=== PATIENT | male | born 1930 | race Caucasian/White ===

== ENCOUNTER 2016-08-03 10:44 | Emergency (ER) | payer MEDICARE ==
[2016-08-03] MEDS ORDERED: FLUORESCEIN STRIP 1 MG/STRIP STRIP ONE (11:16)
--- NOTE | 2016-08-03 11:32 | ER NURSING DOCUMENTATION ---
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 NO VISUAL CHANGE. Transition of care: Home. Notified ED Physician of patient's arrival and CC. 10:53 Acuity: LUBA 3 lc 10:53 Method Of Arrival: Private Vehicle Triage Assessment: 10:55 General: Appears distressed, well groomed, Behavior is appropriate for age, lc cooperative. Pain: Complains of pain in right eye Pain At worst was 2 out of 10 on a pain scale. Quality of pain is described as aching, dull. Neuro: Level of Consciousness is awake, alert, Oriented to person, place, time, event. Respiratory: Airway is patent Respiratory effort is even, unlabored, Respiratory pattern is regular, symmetrical. Derm: Rash noted that is raised, vesicular, on right eye. Historical: - Allergies: No known drug Allergies; - Home Meds: 1. BP MED 2. CANT REMEMBER THE LIST - PMHx: Hypertension; - PSHx: Appendectomy; - Tetanus: < 10 years. - Ebola Screening: : Patient negative for fever greater than or equal to 101.5 degrees Fahrenheit, and additional compatible Ebola Virus Disease symptoms. Patient denies exposure to infectious person. Patient denies travel to an Ebola-affected area in the 21 days before illness onset. No symptoms or risks identified at this time. . - Immunization history: Flu Vaccine < 1 year NO SHINGLES SHOT. - Social history: Smoking status: Patient states was never smoker of tobacco. Screenin:57 Infectious Disease Risk None. Abuse screen: Denies threats or abuse. Denies injuries lc from another. Nutritional screening: No deficits noted. Assessment: 10:57 See Triage Assessment done by same RN. Vital Signs: 10:52 BP 166 / 71 LA Sitting (auto/reg); Pulse 78 LA; Resp 20 S; Temp 97.5(O); Pulse Ox 90% em3 on R/A; Weight 70.31 kg (R); Height 5 ft. 10 in. (177.80 cm) (R); Pain 1/10; 11:18 Resp 16; Pain 1/10; lc 10:52 Body Mass Index 22.24 (70.31 kg, 177.80 cm) em3 Visual Acuity: 11:06 Left Eye Visual acuity 20/40, ; Right Eye Visual acuity 20/40, ; Both Eyes Visual lc acuity 20/40; With Lenses; [place] Coma Score: 11:29 Eye Response: spontaneous(4). Verbal Response: oriented(5). Motor Response: obeys cd commands(6). Total: 15. ED Course: 10:46 Patient arrived in ED. em3 10:47 Triage completed. tg 10:47 Whitney Dietz, JALEESA is Primary Nurse. lc 10:48 Lucas Perry MD is Attending Physician. cd 10:53 Laura Sena MD is Private Physician. em3 10:53 Valuables Remains with patient Patient has correct armband on for positive em3 identification. Bed in low position. Call light in reach. Side rails up X 1. 11:06 Drake Vegas MD is Referral Physician. cd 11:11 Assist Provider Assist provider with eye exam of right eye. using fluorescein stain, lc Performed by Lucas Perry MD Patient tolerated well. Administered Medications: No medications were administered Outcome: 11:08 Discharge ordered by MD. cd 11:18 Discharged to home ambulatory. 11:18 Condition: stable 11:18 Discharge Assessment: Patient awake, alert and oriented x 3. No cognitive and/or functional deficits noted. Patient verbalized understanding of disposition instructions. 11:18 Discharge instructions given to patient, Instructed on discharge instructions, follow up and referral plans. medication usage, HANDWASHING Demonstrated understanding of instructions, medications, Prescriptions given X 2, FAXED TO PHARMACY 11:32 Patient left the ED. 08/04 09:41 Discharge F/U Call: Unable to reach: no answer lp Signatures: Anders Haas RN RN tg Coleman, Linda, RN RN lc Pavlish, Lena, RN RN lp Daley, Chris, MD MD cd Keagan Marie em3
--- NOTE | 2016-08-03 11:32 | ER PHYSICIAN DOCUMENTATION ---
Physician Documentation [facility] Name:Conner Cruz Age:86 yrs Sex:Male :1930 Arrival Date:08/03/2016 Time:10:44 Bed2 Private MD:Laura Sena ED, Chris Disposition: 08/03/16 11:08 Discharged to Home/Self Care. Impression: Herpes Zoster - of First Branch of Right Trigeminal Nerve. - Condition is Fair. - Discharge Instructions: HERPES ZOSTER. - Prescriptions for Famvir 500 mg Oral Tablet - take 1 tablet by ORAL route every 8 hours for 7 days; 21 tablet. - Medical Reconciliation form form. - Follow up: Drake Vegas MD; When: Tomorrow; Reason: Recheck today's complaints, Continuance of care. - Problem is new. - Symptoms are unchanged. - Notes: Take Prednisone 30mg by mouth twice a day for 7 days..... then take Prednisone 15mg by mouth twice a day for 7 days... then take Prednisone 7.5mg by mouth twice a day for 7 days... then stop. Take Famvir 500mg by mouth every 8 hours for 7 days. Take Benadryl 25mg by mouth every 6 hours for itching... Take Tylenol 500mg by mouth every 6 hours for pain... Wash your hands frequently.... Call Dr. Drake Vegas's (Eye Surgeon) office tomorrow morning at 8:00 AM for a follow-up appointment in the clinic downstairs tomorrow. HPI: 08/03 10:50 This 86 yrs old Male presents to ER via Private Vehicle with complaints of cd Eye Problem - Right. 10:50 The patient is experiencing redness, vesicular rash over is right forehead and eyelids. cd He denies blurry vision, painful blinking or eye pain. He denies fever or chills.. Onset: The symptom(s)/episode began/occurred acutely, 10 day(s) ago. Duration: the symptoms are continuous. Associated signs and symptoms: Pertinent negatives: chills, dizziness, fever, headache. Patient wears glasses. Severity of symptoms: At their worst the symptoms were moderate in the emergency department the symptoms are unchanged. The patient has not experienced similar symptoms in the past. Historical: - Allergies: No known drug Allergies; - Home Meds: 1. BP MED 2. CANT REMEMBER THE LIST - PMHx: Hypertension; - PSHx: Appendectomy; - Tetanus: < 10 years. - Ebola Screening: : Patient negative for fever greater than or equal to 101.5 degrees Fahrenheit, and additional compatible Ebola Virus Disease symptoms. Patient denies exposure to infectious person. Patient denies travel to an Ebola-affected area in the 21 days before illness onset. No symptoms or risks identified at this time. . - Immunization history: Flu Vaccine < 1 year NO SHINGLES SHOT. - Social history: Smoking status: Patient states was never smoker of tobacco. ROS: 11:27 Neck: Negative for injury, pain, stiffness and swelling. cd Cardiovascular: Negative for chest pain, palpitations, edema and pleuritic pain. Respiratory: Negative for shortness of breath, dyspnea on exertion, cough, sputum production, wheezing, hemoptysis and pleuritic chest pain. Abdomen/GI: Negative for abdominal pain, nausea, vomiting, diarrhea, constipation, distension, melena, hematochezia and hematemesis. Back: Negative for injury, pain or muscle spasms. MS/Extremity: Negative for injury, deformity, edema, calf tenderness, pain or coldness. 11:27 Neuro: Negative for headache, weakness, numbness, tingling, and seizure. cd 11:27 Constitutional: Negative for chills, fever, poor PO intake. 11:27 Eyes: Positive for itching, Negative for blurry vision, foreign body sensation, pain, photophobia, tearing, visual disturbance, vision loss. 11:27 ENT: Negative for ear pain, nasal discharge, rhinorrhea, sinus congestion, sinus pain, sore throat. 11:27 Skin: Positive for rash, of the right forehead and right eye, Negative for cellulitis, erythema, Positive for classic right First Branch of the Trigeminal Nerve Herpes Zoster.. 11:27 All other systems are negative. Exam: 11:29 Visual Acuity: I have reviewed the nursing documentation. Visual acuity is within cd normal limits. for patient. ENT: Nares patent. No nasal discharge, no septal abnormalities noted. Tympanic membranes are normal and external auditory canals are clear. Oropharynx with no redness, swelling, or masses, exudates, or evidence of obstruction, uvula midline. Mucous membranes moist. Neck: Trachea midline, no thyromegaly or masses palpated, and no cervical lymphadenopathy. Supple, full range of motion without nuchal rigidity, or vertebral point tenderness. No Meningismus. Cardiovascular: Regular rate and rhythm with a normal S1 and S2. No gallops, murmurs, or rubs. Normal PMI, no JVD. No pulse deficits. Respiratory: Lungs have equal breath sounds bilaterally, clear to auscultation and percussion. No rales, rhonchi or wheezes noted. No increased work of breathing, no retractions or nasal flaring. Abdomen/GI: Soft, non-tender, with normal bowel sounds. No distension or tympany. No guarding or rebound. No evidence of tenderness throughout. Back: No spinal tenderness. No costovertebral tenderness. Full range of motion. 11:29 MS/ Extremity: Pulses equal, no cyanosis. Neurovascular intact. Full, normal range of motion. 11:29 Constitutional: The patient appears alert, awake, non-diaphoretic, non-toxic, well developed, well nourished. 11:29 Head/face: Noted is rash, of the right forehead and right eye. 11:29 Eyes: Periorbital structures: swelling, that is mild, on the right lower eyelid, Pupils: equal, round, and reactive to light and accomodation, Extraocular movements: intact throughout, Conjunctiva: injected, in the right eye, Corneas: a fluorescein strip employed to appreciate the findings, No keratitis changes seen, Lids and lashes: drainage, from the right eye, edema, of the right eye, mild, Visual bergeron: are intact. 11:29 Skin: Appearance: normal except for affected area, zoster, on the right forehead and right eye. 11:29 Neuro: Orientation: is normal, Mentation: is normal, Memory: is normal, Cranial nerves: CN II- XII are normal as tested, Motor: moves all fours, Sensation: is normal. Vital Signs: 10:52 BP 166 / 71 LA Sitting (auto/reg); Pulse 78 LA; Resp 20 S; Temp 97.5(O); Pulse Ox 90% em3 on R/A; Weight 70.31 kg (R); Height 5 ft. 10 in. (177.80 cm) (R); Pain 1/10; 11:18 Resp 16; Pain 10; lc 10:52 Body Mass Index 22.24 (70.31 kg, 177.80 cm) em3 [place] Coma Score: 11:29 Eye Response: spontaneous(4). Verbal Response: oriented(5). Motor Response: obeys cd commands(6). Total: 15. Visual Acuity: 11:06 Left Eye Visual acuity 20/40, ; Right Eye Visual acuity 20/40, ; Both Eyes Visual lc acuity 20/40; With Lenses; MDM: 10:48 Patient medically screened. cd 11:25 Differential diagnosis: Corneal ulcer of right eye. Acute iritis of right eye. cd Infectious conjunctivitis in right eye. Herpes Keratitis, Right First Branch Trigeminal Nerve Herpes Zoster. Data reviewed: vital signs, nurses notes, old medical records, and as a result, I will discharge patient. Data interpreted: Pulse oximetry: on room air is 90 %. Interpretation: normal. Counseling: I had a detailed discussion with the patient and/or guardian regarding: the historical points, exam findings, and any diagnostic results supporting the discharge/admit diagnosis, the need for outpatient follow up, for a recheck, for a referral to a specialist, an opthalmologist, tomorrow. 11:43 ED course: Although the patient has Zoster lesions about and on his right eyelids, I cd see no involvement of his corneas. Even though he is beyond his initial 3 days of rash, I will place him on Famvir 500 mg PO q 8 hours for 7 days and Prednisone 21 day taper because of his age. He was instructed to use Benadryl for itching, Tylenol for pain (which he currently has none) and close follow up with Dr. Drake Vegas tomorrow for a thorough Eye Exam.. Dispensed Medications: No medications were administered Signatures: Whitney Dietz, JALEESA RN Lucas Lofton MD MD cd
== END 2016-08-03 11:32 | disposition home or self-care (01) ==
LOC: ER 10:44
DX: B02.9 Zoster without complications (principal); I10 Essential (primary) hypertension; Z79.899 Other long term (current) drug therapy
CPT/HCPCS: 99282; 99283

== ENCOUNTER 2016-08-04 10:07 | Inpatient (IN) | payer MEDICARE ==
[2016-08-04] MEDS ORDERED: HOME MEDICATION LIST NEEDED 1 EA EACH MC ONE (11:22)
[2016-08-04 11:31] LABS: BASOPHILS 0.3 % (0.0-2.0); HEMATOCRIT 48.9 % (42.0-54.0); HEMOGLOBIN 16.8 g/dL (14.0-18.0); LYMPHOCYTES 11.4 % (20.0-40.0); MEAN CELL VOLUME 97.9 fL (80.0-100.0); MEAN CORPUS. HGB CONCENTRATION 34.3 g/dL (32.0-36.0); MEAN CORPUSCULAR HEMOGLOBIN 33.6 pg (29.0-35.0); MEAN PLATELET VOLUME 7.7 fL (7.4-10.4); MONOCYTES 9.2 % (2.0-10.0); MONOCYTES# 0.8 X 10^3uL (0.2-1.0); NEUTROPHILS 79.1 % (54.0-75.0); PLATELET COUNT 201 X 10^3uL (130-440); RED BLOOD COUNT 4.99 X 10^6uL (4.20-6.10); RED CELL DISTRIBUTION WIDTH 12.6 % (11.5-14.5); WHITE BLOOD COUNT 8.8 X 10^3uL (3.9-10.7)
[2016-08-04 11:41] LABS: BLOOD UREA NITROGEN 33 mg/dL (9-20); CALCIUM 9.6 mg/dL (8.4-10.2); CHLORIDE 107 mmol/L (98-107); GLUCOSE 131 mg/dL (70-100); POTASSIUM 3.9 mmol/L (3.5-5.1); SODIUM 140 mmol/L (137-145)
[2016-08-04] MEDS ORDERED: NORMAL SALINE IV ONE (12:00)
[2016-08-04] MEDS ORDERED: ACYCLOVIR IV ONE (12:00)
--- NOTE | 2016-08-04 12:39 | CT REPORT ---
HISTORY: Altered mental status. COMPARISON: None. TECHNIQUE: Axial non-contrast images obtained from skull vertex through foramen magnum. Dose reduction technique was utilized. FINDINGS: There is age appropriate atrophy. There is decreased attenuation in the periventricular white matter , consistent with chronic small vessel ischemic change. There is no hemorrhage. There is no hydroce phalus. No mass lesion is identified. There is a subcentimeter focus of chronic type infarction not ed in the right head of the caudate nucleus. Haas-white matter differentiation is adequate. No midli ne shift is identified. The paranasal sinuses are clear. IMPRESSION: Chronic small vessel ischemic changes. 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 No acute abnormality identified. If highly concerned for acute infarction, MRI is advised. Final Electronic Signature: This report was electronically signed by Jacob Kramer MD, FACR on 2016 12:37 PM. jeanette /
--- NOTE | 2016-08-04 13:26 | ER PHYSICIAN DOCUMENTATION ---
Physician Documentation [facility] Name:Conner Cruz Age:86 yrs Sex:Male :1930 Arrival Date:08/04/2016 Time:10:07 Bed3 Private MD: Hari Yi Disposition: 08/04/16 11:22 Admit ordered for Laura Sena. Preliminary diagnosis are Altered Mental Status, Herpes Zoster Of Eyelid. - Bed requested for Medical/Surgical. - Condition is Fair. - Problem is new. - Symptoms are unchanged. 23 HR OBS Yes HPI: 08/04 11:03 This 86 yrs old Male presents to ER via Private Vehicle with complaints of jm Altered Mental Status. 11:03 The patient presents with confusion. Onset: The symptom(s)/episode began/occurred jm today. Possible causes: unknown. Associated signs and symptoms: Pertinent positives: confusion, Pertinent negatives: headache. Current symptoms: In the emergency department the patient's symptoms are unchanged from the initial presentation. The patient has not experienced similar symptoms in the past. The patient has been recently seen at the [facility] Emergency Department, yesterday, for unrelated complaints, Pt dx w shingles affecting his R eye/forehead. . Pt showed up at clinic today confused about his scripts he received for his shingles. Pt thinks that yesterday he was at a medical convention where he went from room to room, but never saw a doctor about his shingles. . Historical: - Allergies: SULFA (SULFONAMIDES); - Home Meds: 1. Allopurinol Oral 2. amlodipine oral 3. Simethicone Oral 4. vitamin B 5. cortizone-10 6. Clobetasol Propionate Topical 7. betamethasone 8. Triamcinolone Acetonide Topical 9. vitamin D 10. aspirin 81 mg oral tab - PMHx: HYPERTENSION; Herpes Zoster - of First Branch of Right Trigeminal Nerve (August 03, 2016); - PSHx: APPENDECTOMY; - Tetanus: < 10 years. - Ebola Screening: : Patient negative for fever greater than or equal to 101.5 degrees Fahrenheit, and additional compatible Ebola Virus Disease symptoms. - Immunization history: Flu Vaccine None. - Social history: Smoking status: Patient states was never smoker of tobacco. ROS: 11:11 Constitutional: Negative for fever. jm 11:11 Eyes: Positive for blurry vision, itching, pain. 11:11 ENT: Negative for rhinorrhea, sinus congestion, sinus pain, sore throat. 11:11 Cardiovascular: Negative for chest pain. 11:11 Respiratory: Negative for cough, shortness of breath. 11:11 Neuro: Positive for altered mental status, Negative for dizziness, headache. 11:11 All other systems are negative. Exam: 11:12 Constitutional: The patient appears alert, awake. 11:12 Eyes: Periorbital structures: cellulitis, erythema, swelling, Pupils: equal, round, and reactive to light and accomodation, Extraocular movements: intact throughout, Conjunctiva: injected. 11:12 ENT: Mouth: is normal, Voice: is normal. 11:12 Chest/axilla: Inspection: normal, Palpation: is normal. 11:12 Cardiovascular: Rhythm: regular, Pulses: no pulse deficits are appreciated. 11:12 Abdomen/GI: Bowel sounds: normal, Palpation: abdomen is soft and non-tender. 11:12 Back: CVA tenderness, is absent, vertebral tenderness, is not appreciated. 11:12 Musculoskeletal/extremity: ROM: no acute changes, Pulses: are normal with no appreciated deficits, Weight bearing: able to fully bear weight. 11:12 Skin: cellulitis, possible over the L eye/forehead . 11:12 Neuro: Orientation: to person, place, time & situation. Mentation: confused. 11:12 Psych: Behavior/mood is pleasant, cooperative. Vital Signs: 10:12 BP 155 / 64 RA Sitting; Pulse 72; Resp 18; Temp 98.0(O); Pulse Ox 90% on R/A; Weight la 70.31 kg (R); Height 5 ft. 10 in. (177.80 cm) (R); Pain 4/10; 11:32 BP 148 / 59 LA Sitting; Pulse 68; Resp 18; Pulse Ox 90% on R/A; Pain 4/10; la 10:12 Body Mass Index 22.24 (70.31 kg, 177.80 cm) la MDM: 10:11 Patient medically screened. 11:20 Differential Diagnosis: intracranial bleed, dementia, HSV. Data reviewed: vital signs, nurses notes, old medical records, lab test result(s), radiologic studies, and as a result, I will admit patient. Counseling: I had a detailed discussion with the patient and/or guardian regarding: the historical points, exam findings, and any diagnostic results supporting the discharge/admit diagnosis, lab results, radiology results, the need for further work-up and treatment in the hospital. Physician consultation: Laura Sena MD regarding admission, and will see patient shortly, later today. Admission orders: after a detailed discussion of the patient's condition and case, the admit orders are written by me. ED course: CToH negative for acute pathology. Pt will need admission for placement as he is forgetful and confused about certain things regarding his care. Pt will get Ophtho consult while on the floor. . 08/04 11:32 Order name: CBC AUTO DIF, MDIF/RMOR IF IND; Complete Time: 11:49 [facility] 08/04 11:44 Order name: BASIC METABOLIC PANEL; Complete Time: 11:49 [facility] 08/04 15:18 Order name: HEPATIC PANEL [facility] 08/05 02:48 Order name: UA W/ MICRO -CULTURE IF IND [facility] 08/05 06:16 Order name: CBC AUTO DIF, MDIF/RMOR IF IND EDMN 08/05 06:21 Order name: BASIC METABOLIC PANEL [facility] 08/05 11:37 Order name: ERYTHROCYTE SEDIMENTATION RATE EDMN 08/05 11:38 Order name: C-REACTIVE PROTEIN [facility] 08/05 11:52 Order name: THYROID STIMULATING HORMONE EDMN 08/05 12:42 Order name: FREE T4 [facility] 08/05 14:06 Order name: VITAMIN B12 [facility] 08/05 14:06 Order name: FOLATES [facility] 08/06 07:14 Order name: BLOOD CULTURE [facility] 08/06 07:14 Order name: BLOOD CULTURE [facility] 08/06 09:24 Order name: URINE CULTURE [facility] 08/06 09:44 Order name: CBC AUTO DIF, MDIF/RMOR IF IND EDMN 08/06 09:47 Order name: BASIC METABOLIC PANEL [facility] 08/06 09:47 Order name: BNP,NT-PRO EDMN 08/04 12:40 Order name: CAT SCAN; HEAD W/O CON [id number] EDMN 08/05 10:26 Order name: BRAIN W/WO CONTRAST [id number] [facility] 08/04 10:37 Order name: Iv Saline Lock; Complete Time: 11:11 08/04 10:37 Order name: Pulse Ox Continuous; Complete Time: 11:11 Dispensed Medications: 11:34 Drug: NS 0.9% 1000 ml; Route: IV; Rate: bolus; Site: left antecubital; la 12:13 Follow up: IV Status: Completed infusion; IV Intake: 1000ml la 12:14 Follow up: Response: No adverse reaction la 11:35 Drug: NS 0.9% 100 ml, Acyclovir 10 mg/kg; Route: IVPB; Site: left antecubital; la 12:14 Follow up: Response: No adverse reaction la 12:33 Follow up: IV Status: Completed infusion; IV Intake: 100ml la Signatures: Hari Alejandra MD MD jm Alexander, Linda la
--- NOTE | 2016-08-04 13:26 | ER NURSING DOCUMENTATION ---
Nurse's Notes [facility] Name:Conner Cruz Age:86 yrs Sex:Male :1930 Arrival Date:08/04/2016 Time:10:07 Bed3 Private MD: Diagnosis:Altered Mental Status;Herpes Zoster Of Eyelid Presentation: 08/04 10:13 Presenting complaint: Patient states: right forehead with various stages of scabbing la for "awhile", redness around right eye with swelling. yesterday he said he poked his finger into his right eye. right eye tearing. Transition of care: Home. 10:13 Acuity: LUBA 3 la 10:13 Method Of Arrival: Private Vehicle la Triage Assessment: 10:17 General: Appears comfortable, Behavior is cooperative, pleasant. Pain: Complains of la pain in right eye Pain currently is 4 out of 10 on a pain scale. EENT: Eyes are tearing on right eye redness. Neuro: Level of Consciousness is awake, alert, obeys commands, Oriented to person, place, time, states he was at an event yesterday and told he may have shingles. Clinic triage nurse called to say Dr Vegas does not need to see him until after he has been treated. . 10:17 Cardiovascular: No deficits noted. Respiratory: No deficits noted. GI: No deficits la noted. : No deficits noted. Derm: Skin has blisters on scabbed. 10:17 Musculoskeletal: No deficits noted. la Historical: - Allergies: SULFA (SULFONAMIDES); - Home Meds: 1. Allopurinol Oral 2. amlodipine oral 3. Simethicone Oral 4. vitamin B 5. cortizone-10 6. Clobetasol Propionate Topical 7. betamethasone 8. Triamcinolone Acetonide Topical 9. vitamin D 10. aspirin 81 mg oral tab - PMHx: HYPERTENSION; Herpes Zoster - of First Branch of Right Trigeminal Nerve (August 03, 2016); - PSHx: APPENDECTOMY; - Tetanus: < 10 years. - Ebola Screening: : Patient negative for fever greater than or equal to 101.5 degrees Fahrenheit, and additional compatible Ebola Virus Disease symptoms. - Immunization history: Flu Vaccine None. - Social history: Smoking status: Patient states was never smoker of tobacco. Screenin:20 Infectious Disease Risk None. Abuse screen: Denies threats or abuse. Nutritional la screening: No deficits noted. Assessment: 10:20 See Triage Assessment done by same RN. la 11:12 Reassessment: To CT. la 11:35 Neuro: appears confused as to events of being here. Standing at bedside putting shirt la on, pt re-oriented to being in the hospital. Pt pleasant and follows commands to lie back in bed. Door remains open to observe pt. . 11:36 Reassessment: acyclovir prepared by pharmacy. la 12:14 Reassessment: Dr Medina in with pt updating on plan of care. . la 12:37 Reassessment: Patient appears in no apparent distress at this time. pt sleeping. la 12:56 Reassessment: pts POA on phone Hari Montejo [phone]. Pt gave permission for me to la talk to Hari and give him an update. Vital Signs: 10:12 BP 155 / 64 RA Sitting; Pulse 72; Resp 18; Temp 98.0(O); Pulse Ox 90% on R/A; Weight la 70.31 kg (R); Height 5 ft. 10 in. (177.80 cm) (R); Pain 4/10; 11:32 BP 148 / 59 LA Sitting; Pulse 68; Resp 18; Pulse Ox 90% on R/A; Pain 4/10; la 10:12 Body Mass Index 22.24 (70.31 kg, 177.80 cm) la ED Course: 10:10 Patient arrived in ED. cj 10:11 Hari Aeljandra MD is Attending Physician. yaya 10:13 Whitney Jones is Primary Nurse. la 10:15 Triage completed. la 10:21 Valuables Remains with patient Patient has correct armband on for positive la identification. Bed in low position. Call light in reach. Side rails up X 1. Door closed. Verbal reassurance given. Pillow given. 11:[address] dnn 11:[address]. dnn 11:21 Laura Sena MD is Admitting Physician. yaya Administered Medications: 11:34 Drug: NS 0.9% 1000 ml; Route: IV; Rate: bolus; Site: left antecubital; la 12:13 Follow up: IV Status: Completed infusion; IV Intake: 1000ml la 12:14 Follow up: Response: No adverse reaction la 11:35 Drug: NS 0.9% 100 ml, Acyclovir 10 mg/kg; Route: IVPB; Site: left antecubital; la 12:14 Follow up: Response: No adverse reaction la 12:33 Follow up: IV Status: Completed infusion; IV Intake: 100ml la Intake: 12:13 IV: 1000ml; Total: 1000ml. la 12:33 IV: 100ml; Total: 1100ml. la Outcome: 11:22 Decision to Admit by Provider. yaya 13:25 Admitted to Med/surg accompanied by nurse. juno 13:25 Condition: good 13:25 Report given to iVdhi LAZCANO 13:25 Discharge Assessment: 13:26 Patient left the ED. la Signatures: Hari Alejandra MD MD jm Norman, David dnn Alexander, Linda la Jones, Carissa cj
[2016-08-04 15:17] LABS: BILIRUBIN, DIRECT 0.3 mg/dL (0.0-0.4); TOTAL PROTEIN 6.6 g/dL (6.3-8.2)
[2016-08-04] MEDS: NORMAL SALINE 1,000 ML IV SCH (16:13)
[2016-08-04] MEDS: ACETAMINOPHEN 325 MG TABLET PO PRN (16:14)
[2016-08-04] MEDS: METHYLPREDNISOLONE SOD 125 MG/2 ML VIAL IV SCH ×2 (16:48→21:37)
--- NOTE | 2016-08-04 17:23 | HISTORY & PHYSICAL ---
DATE OF ADMISSION: 08/04/16 PRIMARY CARE PROVIDER: Laura Sena MD CHIEF COMPLAINT: Right eye pain. HISTORY OF PRESENT ILLNESS: This is an 86-year-old white male with a history of chronic renal failure who was seen in the emergency room yesterday for zoster ophthalmicus. He was discharged home with prescriptions for an antiviral and prednisone. However, he did not fill these medications. Of note , he is a very poor historian. He states that he has not had any fevers, chills or sweats. He has had right eye pain. He is unclear about the onset of his symptoms. He says he feels like he has had these symptoms on and off for a long time. He denies nausea or vomiting. He has chronic diarrhea alternating with constipation. He states he has chronic neck pain without any acute worsening of his symptoms. No myalgias and no arthralgias. No cough or sore throat. No shortness of breath. No chest pain. No palpitations. He states that he has decreased visual acuity and difficulty focusing his right eye. He is confused and states that he went to a medical conference yesterday and spoke with a female provider who thought he had shingles and recommended that he be seen. He then came to the clinic this morning and spoke with triage. He was then sent to the emergency room given his altered mental status. REVIEW OF SYSTEMS: No abdominal pain. His appetite has been fairly stable. He has a history of chronic bilateral lower extremity dermatitis for which he has used topical steroids. He is not having any symptoms of his opposite left eye. He has had some right eye purulent drainage. He has had some low grade headaches. No PND. He uses 2 pillows but this is no change from his baseline. No edema. No dysuria. No bloody stools other than secondary to his hemorrhoids. He has not had any falls at home but he states that he is losing his balance and he has some ataxia with near falls. He was supposed to go into see [facility] Dr. Drake Vegas today for his zoster, but he was unaware of these recommendations. He has no photophobia, but he has pain with eye movement. PAST MEDICAL HISTORY 1. Hypertension. 2. Fecal incontinence. 3. Large right inguinal hernia. 4. 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 5. Chronic dry skin dermatitis. 6. Osteopenia. 7. Chronic kidney disease stage 3 with baseline creatinine 1.8 to 1.9. He has a history of prior acute renal failure with creatinine elevation to 4.6. He has been seen by nephrology in the past. 8. Gout. 9. Chronic venous insufficiency of bilateral lower extremities. 10. History of a breast mass and has been evaluated by general surgery; no excision was recommended as it was thought to be benign. 11. Chronic urinary retention. He does self catheterizations 3 times daily. He is followed by urology Dr. Velazco. 12. History of multiple skin tears and lacerations. 13. Ataxia. 14. History of nephrolithiasis. PAST SURGICAL HISTORY 1. Status post transurethral resection of the prostate in 1991. 2. Arthroscopy of knee for a triad injury. 3. Appendectomy. 4. Left inguinal hernia repair. 5. Lithotripsy. 6. Nephrolithotomy and removal of multiple calculi. 7. Tonsillectomy. 8. Adenoidectomy. MEDICATIONS Allopurinol 100 mg twice daily. Amlodipine 10 mg daily. Vitamin 2000 daily. Baby aspirin 81 mg daily. Triamcinolone cream daily as needed. Baby aspirin. Over the counter cortisone 1% cream as needed to bilateral lower extremities. Vitamin B complex. Simethicone 80 mg daily. ALLERGIES: Sulfa causing an unknown reaction. SOCIAL HISTORY: He is a full cor. Advanced directives are in the chart. Rare alcohol use. He has never been a smoker. He is retired. He worked for the [employer]. 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 He is single. He has a nephew who is his medical [id number]. FAMILY HISTORY: Sister at the age of 55 from a pulmonary embolism after surgery. Dad at the age of 64 with a history of stroke and hypertension. Mom at age 86 of a carcinoid tumor and osteoarthritis. PHYSICAL EXAMINATION VITAL SIGNS: Temperature is 98.0, respiratory rate 18, pulse 72, blood pressure 155/64, 90% on room air. GENERAL: This is an elderly male who is in no apparent distress. He is sitting up in bad. Chronically ill appearing. HEENT: His pupils are equal, round, reactive to light. His extraocular movements are intact. However, he has significant pain with movement of his right eye. Yellow purulent drainage right eye with scleral and conjunctival injection. Right eye droop. Varicella zoster vesicular rash of the right side of his face in trigeminal distribution with some scabbing and clusters of vesicles in various stages of healing. Nose is spared. TMs are clear. Nares are boggy. Oropharynx is clear. Mucous membranes appear dry. NECK: Supple. No carotid bruits. No meningismus. No lymphadenopathy. Right paracervical spinous tenderness. LUNGS: Good aeration throughout and clear. HEART: Distant. Regular rate and rhythm without any murmurs, rubs or gallops. ABDOMEN: Soft, nontender, nondistended with good bowel sounds and no masses or hepatosplenomegaly. EXTREMITIES: Warm. Chronic venostasis changes bilaterally with pigmentation. Trace pedal and pretibial edema at his baseline. Good peripheral pulses. NEUROLOGIC: He is alert and oriented times 3. However, he does believe that he went to a medical conference yesterday and is confused about the details of what happened. Cranial nerves 2 through 12 are grossly intact without focal deficits. Motor sensation and DTRs are intact. DATA: CBC is remarkable for a white count of 8.8 with 79% neutrophils. Chemistries show bicarbonate of 21, BUN of 33, creatinine 1.7 which is at his baseline. Fasting glucose is 131. CT head negative. IMPRESSION: This is an 86-year-old male who presents with severe zoster ophthalmicus and altered mental status. PLAN 1. Fluids, electrolytes and nutrition. Regular diet. Gentle IV fluids. Recheck laboratory studies in the morning. 2. Infectious disease. IV Acyclovir was started. Follow CBC. Will request ophthalmology consultation. Blood and urine cultures. Consider lumbar puncture. 3. CV. The patient with underlying hypertension. Will continue amlodipine. 4. Respiratory. The patient is stable on room air. 5. Neurology: He has some short-term memory issues at baseline. However, he now has some significant delirium. CT head negative. Follow closely. 5. Disposition. The patient is full cor/full tube. Anticipate 2-3 day hospital stay. Will change from observation to full admission. Anticipate that he will need placement at the [facility] halfway. His neighbor states that he has been quite confused per ED staff. Will discuss with his nephew who is the medical [id number]. YARY
[2016-08-04] MEDS: ALLOPURINOL 100 MG TAB PO SCH (21:35)
[2016-08-04] MEDS: ERYTHROMYCIN BASE OPHTH 1 GM OINT RIGHTEYE SCH (21:35)
[2016-08-05] MEDS: NORMAL SALINE 1,000 ML IV SCH ×2 (00:38→23:19)
[2016-08-05 02:46] LABS: URINE APPEARANCE CLOUDY; URINE COLOR YELLOW; URINE MUCUS NONE SEEN (Up to 25%)
[2016-08-05 02:47] LABS: URINE BACTERIA >50 ORGANISMS/hpf (<10/hpf); URINE BILIRUBIN NEGATIVE (NEGATIVE); URINE BLOOD 50 Ery/uL (2+) (NEGATIVE); URINE GLUCOSE NORMAL (NEGATIVE); URINE KETONE NEGATIVE (NEGATIVE); URINE LEUKOCYTE ESTERASE 25 WBC/uL (1+) (NEGATIVE); URINE PH 5.5 (5-7); URINE PROTEIN 30mg/dL (1+) (NEG - TRACE); URINE SQUAMOUS EPITHELIAL CELL 0-5/hpf (<= 15/hpf); URINE UROBILINOGEN NORMAL (NEG-1mg/dL)
[2016-08-05 02:48] LABS: URINE NITRITE POSITIVE (NEGATIVE)
[2016-08-05] MEDS: METHYLPREDNISOLONE SOD 125 MG/2 ML VIAL IV SCH ×4 (04:11→21:00)
[2016-08-05 06:03] LABS: BASOPHILS 0.4 % (0.0-2.0); HEMATOCRIT 48.1 % (42.0-54.0); HEMOGLOBIN 16.5 g/dL (14.0-18.0); LYMPHOCYTES 4.9 % (20.0-40.0); LYMPHOCYTES# 0.5 X 10^3uL (0.8-3.8); MEAN CELL VOLUME 99.2 fL (80.0-100.0); MEAN CORPUS. HGB CONCENTRATION 34.4 g/dL (32.0-36.0); MEAN CORPUSCULAR HEMOGLOBIN 34.1 pg (29.0-35.0); MEAN PLATELET VOLUME 7.9 fL (7.4-10.4); MONOCYTES 0.8 % (2.0-10.0); MONOCYTES# 0.1 X 10^3uL (0.2-1.0); NEUTROPHILS# 8.9 X 10^3uL (2.6-6.7); PLATELET COUNT 189 X 10^3uL (130-440); RED BLOOD COUNT 4.85 X 10^6uL (4.20-6.10); RED CELL DISTRIBUTION WIDTH 12.6 % (11.5-14.5); WHITE BLOOD COUNT 9.5 X 10^3uL (3.9-10.7)
[2016-08-05 06:05] LABS: BLOOD UREA NITROGEN 28 mg/dL (9-20); CALCIUM 8.4 mg/dL (8.4-10.2); CHLORIDE 112 mmol/L (98-107); GLUCOSE 148 mg/dL (70-100); POTASSIUM 4.1 mmol/L (3.5-5.1); SODIUM 143 mmol/L (137-145)
[2016-08-05 06:15] LABS: NEUTROPHILS 93.9 % (54.0-75.0)
[2016-08-05] MEDS ORDERED: NORMAL SALINE IV SCH ×2 (08:00)
[2016-08-05] MEDS ORDERED: ACYCLOVIR IV SCH ×2 (08:00)
[2016-08-05] MEDS ORDERED: CEPHALEXIN 125 MG/5 ML PO SCH (09:00)
--- NOTE | 2016-08-05 09:21 | PROGRESS NOTE: IM SOAP ---
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 Staff notes improper technique.) Musculoskeletal: weakness, other (Diffuse joint aches. No neck pain.) Integumentary: rashes (HZV R V1 distribution.) Neurological: headache, limb weakness IM: PN Objective Exam - I&O/Vital Signs I&O: Intake & Output 08/04/16 08/05/16 08/05/16 21:59 05:59 13:59 Intake Total 240 Balance 240 Intake: IV 240 Left Antecubital 240 Other: Voiding Method Urinal Vital Signs: Last Vital Signs Temp 37.1 C 08/05/16 06:33 Pulse 75 08/05/16 06:33 Resp 20 08/05/16 06:33 BP 143/63 08/05/16 06:33 Pulse Ox 92 08/05/16 06:33 Oxygen Flow Rate 1.5 Oxygen Delivery Method Nasal Cannula - Constitutional General appearance: Present: cooperative, disheveled, thin. Absent: acute distress - Head Head exam: Present: other (Vesicular rash in various stages of development in Right V1 distribution. ) - Eye Eye exam: Present: conjunctival injection (Scleral injection.), EOMI, periorbital swelling (Infraorbital redness and swelling improved. Pain with movements of EOM. ), PERRL - ENT ENT exam: Present: mucous membranes moist - Neck Neck exam: Present: full ROM. Absent: lymphadenopathy, meningismus, tenderness - Respiratory Respiratory exam: Present: clear. Absent: accessory muscle use, respiratory distress - Cardiovascular Cardiovascular exam: Present: RRR (Distant). Absent: systolic murmur - GI/Abdominal GI/Abdominal exam: Present: distended (Mild.), hypoactive bowel sounds. Absent : mass, organomegaly - External exam: Present: other (Large hernia.) - Extremities Exam Extremities exam: Absent: calf tenderness, Glenn's Sign, edema, tenderness - Back Exam Back exam: Absent: CVA tenderness (L), CVA tenderness (R) - Neurological Exam Neurological exam: Present: CN II-XII intact, oriented X3, other (Is aware of confabulation yesterday. juan lemaves that he [place] [facility] [place] does not recll ED visit at all. States taht he has had issues with his memeory for many years now.) - Psychiatric Psychiatric exam: Present: anxious (Mildly anxious at his baseline.) - Skin Skin exam: Present: rash (Zoster rash as above.), other (Senile purpura) - Allied Health Notes Allied health notes reviewed: case management, nursing (I have spoken extensively with nursing staff and case management.) - Lab Labs: Laboratory Last Values WBC 9.5 X 10^3uL (3.9-10.7) 08/05/16 05:35 RBC 4.85 X 10^6uL (4.20-6.10) 08/05/16 05:35 Hgb 16.5 g/dL (14.0-18.0) 08/05/16 05:35 Hct 48.1 % (42.0-54.0) 08/05/16 05:35 MCV 99.2 fL (80.0-100.0) 08/05/16 05:35 MCH 34.1 pg (29.0-35.0) 08/05/16 05:35 MCHC 34.4 g/dL (32.0-36.0) 08/05/16 05:35 RDW 12.6 % (11.5-14.5) 08/05/16 05:35 Plt Count 189 X 10^3uL (130-440) 08/05/16 05:35 MPV 7.9 fL (7.4-10.4) 08/05/16 05:35 Neutrophils % 93.9 % (54.0-75.0) H 08/05/16 05:35 Lymphocytes % 4.9 % (20.0-40.0) L 08/05/16 05:35 Eosinophils % 0.0 % (0.0-6.0) 08/05/16 05:35 Basophils % 0.4 % (0.0-2.0) 08/05/16 05:35 Neutrophils # 8.9 X 10^3uL (2.6-6.7) H 08/05/16 05:35 Lymphocytes # 0.5 X 10^3uL (0.8-3.8) L 08/05/16 05:35 Monocytes 0.8 % (2.0-10.0) L 08/05/16 05:35 Monocytes # 0.1 X 10^3uL (0.2-1.0) L 08/05/16 05:35 Eosinophils # 0.0 X 10^3uL (0.0-0.4) 08/05/16 05:35 Basophils # 0.0 X 10^3uL (0.0-0.1) 08/05/16 05:35 Sodium 143 mmol/L (137-145) 08/05/16 05:35 Potassium 4.1 mmol/L (3.5-5.1) 08/05/16 05:35 Chloride 112 mmol/L (98-107) H 08/05/16 05:35 Carbon Dioxide 22 mmol/L (22-30) 08/05/16 05:35 BUN 28 mg/dL (9-20) H 08/05/16 05:35 Creatinine 1.4 mg/dL (0.7-1.3) H 08/05/16 05:35 GFR Calculation Not Reportable 08/05/16 05:35 Glucose 148 mg/dL (70-100) H 08/05/16 05:35 Calcium 8.4 mg/dL (8.4-10.2) 08/05/16 05:35 Total Bilirubin 1.0 mg/dL (0.2-1.3) 08/04/16 10:58 Direct Bilirubin 0.3 mg/dL (0.0-0.4) 08/04/16 10:58 AST 30 U/L (17-59) 08/04/16 10:58 ALT 26 U/L (21-72) 08/04/16 10:58 Alkaline Phosphatase 56 U/L (38-126) 08/04/16 10:58 Total Protein 6.6 g/dL (6.3-8.2) 08/04/16 10:58 Albumin 4.0 g/dL (3.5-5.0) 08/04/16 10:58 Urine Color Yellow 08/05/16 02:30 Urine Appearance Cloudy A 08/05/16 02:30 Urine pH 5.5 (5-7) 08/05/16 02:30 Ur Specific C[place] 1.020 (0.001-1.035) 08/05/16 02:30 Urine Protein 30mg/dl (1+) (NEG - TRACE) A 08/05/16 02:30 Urine Ketones Negative (NEGATIVE) 08/05/16 02:30 Urine Blood 50 alisia/ul (2+) (NEGATIVE) A 08/05/16 02:30 Urine Nitrate Positive (NEGATIVE) A 08/05/16 02:30 Urine Bilirubin Negative (NEGATIVE) 08/05/16 02:30 Urine Urobilinogen Normal (NEG-1mg/dL) 08/05/16 02:30 Ur Leukocyte Esterase 25 wbc/ul (1+) (NEGATIVE) A 08/05/16 02:30 Urine RBC 5-10/hpf (0-5/hpf) A 08/05/16 02:30 Urine WBC >100/hpf (0-4/hpf) A 08/05/16 02:30 Ur Squamous Epith Cells 0-5/hpf (<= 15/hpf) 08/05/16 02:30 Urine Bacteria >50 organisms/hpf (<10/hpf) A 08/05/16 02:30 Urine Mucus None seen (Up to 25%) 08/05/16 02:30 Urine Glucose Normal (NEGATIVE) 08/05/16 02:30 Assessment and Plan - Date of Encounter Date of Encounter: 08/05/16 (1) Herpes zoster keratitis of right eye Status: Acute Assessment and plan: I appreciate ophthalmology, Dr. Vegas's evaluation. Follow-up exam in 1 week. Continue IV Acyclovir, IV Solumedrol, and erythromycin eye ointment. Mild improvement today. (2) Herpes zoster ophthalmicus of right eye Status: Acute Assessment and plan: As above. (3) Confusion associated with infection Status: Acute Assessment and plan: The risk of zoster aseptic meningitis and zoster encephalitis is very rare. However, his confusion is worse. CT head in ED negative. Check MRI brain. Neurology consultation with Dr. Caballero today. Continue meningitic dosages of IV acyclovir 10mg/kg IV Q8H. Will discuss with Dr. Caballero the need for LP. Check bedside MMSE. Check ESR, CRP, B12, folate, TSH, FT4. (4) UTI (urinary tract infection) Status: Acute Assessment and plan: Abnormal U/A. No fevers. WBC normal. Check BCx. Begin cephalexin. Await UCx and sensitivities. (5) Chronic renal failure, stage 3 (moderate) Status: Acute Assessment and plan: Creatinine better today than baseline with IVF. (6) Hypoxemia Status: Acute Assessment and plan: New oxygen requirement 1.5-2L oxygen. Receiving IVF. Lungs clear. Follow. - Time Spent With Patient Total time spent with greater than 50% in coordination of care (as documented) at patient's floor/unit and/or counseling patient: Greater than 35 minutes (Including time spent w patient, MPOA on the phone, Dr. Caballero, and medical staff >1 hour.) Estimated anticipated discharge: 3-4 days and then swin bed Quality Questions - VTE Prophylaxis Assessment VTE Present on Admission?: No Patient at risk for venous thromboembolism?: Yes VTE Risk Level: High Risk Pharmaceutical VTE prophylaxis contraindication reason: N/A- VTE prophylaxsis ordered Mechanical VTE prophylaxis contraindication reason: N/A- VTE prophylaxsis ordered (4) UTI (urinary tract infection) Qualifiers: Urinary tract infection type: catheter-associated UTI Encounter type: initial encounter
[2016-08-05] MEDS ORDERED: CEPHALEXIN MONOHYDRATE 250 MG CAPSULE PO ONE (09:50)
--- NOTE | 2016-08-05 10:23 | MRI REPORT ---
HISTORY: Altered mental status and confusion. Headache. COMPARISON: None. TECHNIQUE: Multiplanar multi sequential imaging of the brain obtained with and without IV gadolinium. 15cc Magnevist contrast. FINDINGS: There is moderate diffuse cerebral atrophy. Adrenals are normal in size for the degree of atrophy. Mo derate chronic small vessel ischemic disease involves the cerebral white matter. There is no focus of restricted diffusion. 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 No hemorr john, mass, or enhancing intracranial lesion is demonstrated. Vascular flow voids are normal. Orbits and visualized paranasal sinuses are unremarkable. Dural venous sinuses enhance normally. IMPRESSION: 1. Moderate cerebral atrophy. 2. Chronic small vessel schema changes in the cerebral white matter and melody. No evidence for acute i nfarct or hemorrhage. 3. No intracranial mass or enhancing lesion. Final Electronic Signature: This report was electronically signed by Ruben Meyer MD on 08/05/2016 10:21 AM. vanesa /
[2016-08-05] MEDS: ERYTHROMYCIN BASE OPHTH 1 GM OINT RIGHTEYE SCH ×2 (10:37→21:00)
[2016-08-05] MEDS: AMLODIPINE BESYLATE 5 MG TABLET PO SCH (10:38)
[2016-08-05] MEDS: ALLOPURINOL 100 MG TAB PO SCH ×2 (10:39→21:01)
[2016-08-05] MEDS: NORMAL SALINE IV SCH ×2 (10:39→18:13)
[2016-08-05] MEDS: ACYCLOVIR IV SCH ×2 (10:39→18:13)
[2016-08-05] MEDS: ENOXAPARIN SODIUM 30 MG/0.3 ML SYR SUBCUT SCH (10:42)
[2016-08-05 11:37] LABS: C-REACTIVE PROTEIN < 5.0 mg/L (<10.0)
[2016-08-05 11:51] LABS: THYROID STIMULATING HORMONE 0.32 uIU/mL (0.47-4.68)
[2016-08-05] MEDS: CEPHALEXIN 125 MG/5 ML PO SCH ×2 (12:08→21:00)
[2016-08-05 12:37] LABS: FREE T4 0.91 ng/dL (0.78-2.19)
[2016-08-05 14:05] LABS: FOLATES > 20.0 ng/mL (3.0-16.0)
[2016-08-06] MEDS: ACYCLOVIR IV SCH ×3 (02:40→10:03)
[2016-08-06] MEDS: NORMAL SALINE IV SCH ×3 (02:40→10:03)
[2016-08-06] MEDS: METHYLPREDNISOLONE SOD 125 MG/2 ML VIAL IV SCH (04:20)
[2016-08-06] MEDS ORDERED: predniSONE 10 MG TABLET PO SCH (09:00)
[2016-08-06 09:18] VITALS: O2SAT 90
[2016-08-06 09:31] LABS: BASOPHIL# 0.1 X 10^3uL (0.0-0.1); BASOPHILS 0.7 % (0.0-2.0); HEMATOCRIT 48.2 % (42.0-54.0); HEMOGLOBIN 16.6 g/dL (14.0-18.0); LYMPHOCYTES 2.5 % (20.0-40.0); LYMPHOCYTES# 0.3 X 10^3uL (0.8-3.8); MEAN CELL VOLUME 98.3 fL (80.0-100.0); MEAN CORPUS. HGB CONCENTRATION 34.4 g/dL (32.0-36.0); MEAN CORPUSCULAR HEMOGLOBIN 33.8 pg (29.0-35.0); MEAN PLATELET VOLUME 7.7 fL (7.4-10.4); MONOCYTES# 0.1 X 10^3uL (0.2-1.0); NEUTROPHILS# 13.5 X 10^3uL (2.6-6.7); PLATELET COUNT 190 X 10^3uL (130-440); RED BLOOD COUNT 4.91 X 10^6uL (4.20-6.10); RED CELL DISTRIBUTION WIDTH 12.9 % (11.5-14.5)
[2016-08-06 09:36] LABS: BLOOD UREA NITROGEN 32 mg/dL (9-20); CALCIUM 8.3 mg/dL (8.4-10.2); CHLORIDE 115 mmol/L (98-107); GLUCOSE 170 mg/dL (70-100); POTASSIUM 3.7 mmol/L (3.5-5.1); SODIUM 144 mmol/L (137-145)
--- NOTE | 2016-08-06 09:42 | PROGRESS NOTE: IM SOAP ---
IM: PN Subjective General: fatigue, confusion (He states that he is having hallucinations, especially at night. ), tremor (Baseline, chronic essential tremor.), visual disturbance (Blurred vision R eye 2' zoster.), no diaphoresis, no fever, no chills HEENT: visual changes, headache Cardiovascular: dizziness (With changing positions.), no chest pain, no chest pressure, no palpitations Respiratory: cough, sputum (New today.), no SOB Gastrointestinal: diarrhea (Chroninc constipation and diarrhea. ), constipation , no abdominal pain, no nausea, no vomiting Genitourinary: other (Uriarte placed today.) Musculoskeletal: weakness, other (Diffuse joint aches. No neck pain.) Integumentary: rashes (HZV R V1 distribution.) Neurological: headache, limb weakness IM: PN Objective Exam - I&O/Vital Signs I&O: Intake & Output 08/05/16 08/06/16 08/06/16 21:59 05:59 13:59 Intake Total 1220 Output Total 675 Balance 545 Intake: Oral 1220 Output: Urine 675 Other: Urine Appearance Cloudy Urine Color Light Fozia Voiding Method Self-Catheterization Vital Signs: Last Vital Signs Temp 36.7 C 08/06/16 07:00 Pulse 94 H 08/06/16 07:00 Resp 18 08/06/16 07:00 BP 145/71 08/06/16 07:00 Pulse Ox 90 08/06/16 09:17 Oxygen Flow Rate 2 Oxygen Delivery Method Nasal Cannula - Constitutional General appearance: Present: cooperative, disheveled, mild distress (2' anxiety of transfer. NO respiratory distress.q), thin - Head Head exam: Present: other (Vesicular rash in various stages of development in Right V1 distribution. ) - Eye Eye exam: Present: conjunctival injection (Scleral injection. R eye overall improving.), EOMI, periorbital swelling (Infraorbital redness and swelling improved. Pain with movements of EOM. ), PERRL, other (Pain with right EOM movement.) - ENT ENT exam: Present: mucous membranes moist - Neck Neck exam: Present: full ROM. Absent: lymphadenopathy, meningismus, tenderness - Respiratory Respiratory exam: Present: rales (Bibasilar rales, L>R with rhonchi throughout.) , rhonchi. Absent: accessory muscle use, respiratory distress - Cardiovascular Cardiovascular exam: Present: RRR (Distant). Absent: systolic murmur - GI/Abdominal GI/Abdominal exam: Present: distended (Mild.), hypoactive bowel sounds. Absent : mass, organomegaly - External exam: Present: other (Large hernia.) - Extremities Exam Extremities exam: Absent: calf tenderness, Glenn's Sign, edema, tenderness - Back Exam Back exam: Absent: CVA tenderness (L), CVA tenderness (R) - Neurological Exam Neurological exam: Present: altered (He confabulates and perseverates about losing a razor when he was on a diferent floor.), CN II-XII intact, oriented X3 , other (Is aware of confabulation yesterday. juan lemaves that he attended medical conference here at [facility] [place] Thursday and does not recll ED visit at all. States taht he has had issues with his memeory for many years now.) - Psychiatric Psychiatric exam: Present: anxious (Mildly anxious at his baseline.) - Skin Skin exam: Present: rash (Zoster rash as above.), other (Senile purpura) - Allied Health Notes Allied health notes reviewed: case management, nursing (I have spoken extensively with nursing staff and case management.), RT (Multiple long d/w patient's nephew and SHARMINA, Hari Walsh [phone]; nursing, SW, and case mgt.) - Lab Labs: Laboratory Last Values WBC 9.5 X 10^3uL (3.9-10.7) 08/05/16 05:35 RBC 4.85 X 10^6uL (4.20-6.10) 08/05/16 05:35 Hgb 16.5 g/dL (14.0-18.0) 08/05/16 05:35 Hct 48.1 % (42.0-54.0) 08/05/16 05:35 MCV 99.2 fL (80.0-100.0) 08/05/16 05:35 MCH 34.1 pg (29.0-35.0) 08/05/16 05:35 MCHC 34.4 g/dL (32.0-36.0) 08/05/16 05:35 RDW 12.6 % (11.5-14.5) 08/05/16 05:35 Plt Count 189 X 10^3uL (130-440) 08/05/16 05:35 MPV 7.9 fL (7.4-10.4) 08/05/16 05:35 Neutrophils % 93.9 % (54.0-75.0) H 08/05/16 05:35 Lymphocytes % 4.9 % (20.0-40.0) L 08/05/16 05:35 Eosinophils % 0.0 % (0.0-6.0) 08/05/16 05:35 Basophils % 0.4 % (0.0-2.0) 08/05/16 05:35 Neutrophils # 8.9 X 10^3uL (2.6-6.7) H 08/05/16 05:35 Lymphocytes # 0.5 X 10^3uL (0.8-3.8) L 08/05/16 05:35 Monocytes 0.8 % (2.0-10.0) L 08/05/16 05:35 Monocytes # 0.1 X 10^3uL (0.2-1.0) L 08/05/16 05:35 Eosinophils # 0.0 X 10^3uL (0.0-0.4) 08/05/16 05:35 Basophils # 0.0 X 10^3uL (0.0-0.1) 08/05/16 05:35 ESR 4 MM/HR (0-10) 08/05/16 11:05 Sodium 143 mmol/L (137-145) 08/05/16 05:35 Potassium 4.1 mmol/L (3.5-5.1) 08/05/16 05:35 Chloride 112 mmol/L (98-107) H 08/05/16 05:35 Carbon Dioxide 22 mmol/L (22-30) 08/05/16 05:35 BUN 28 mg/dL (9-20) H 08/05/16 05:35 Creatinine 1.4 mg/dL (0.7-1.3) H 08/05/16 05:35 GFR Calculation Not Reportable 08/05/16 05:35 Glucose 148 mg/dL (70-100) H 08/05/16 05:35 Calcium 8.4 mg/dL (8.4-10.2) 08/05/16 05:35 Total Bilirubin 1.0 mg/dL (0.2-1.3) 08/04/16 10:58 Direct Bilirubin 0.3 mg/dL (0.0-0.4) 08/04/16 10:58 AST 30 U/L (17-59) 08/04/16 10:58 ALT 26 U/L (21-72) 08/04/16 10:58 Alkaline Phosphatase 56 U/L (38-126) 08/04/16 10:58 C-Reactive Protein < 5.0 mg/L (<10.0) 08/05/16 11:05 Total Protein 6.6 g/dL (6.3-8.2) 08/04/16 10:58 Albumin 4.0 g/dL (3.5-5.0) 08/04/16 10:58 Vitamin B12 585 pg/mL (230-1050) 08/05/16 11:20 Folic Acid > 20.0 ng/mL (3.0-16.0) H 08/05/16 11:20 TSH 0.32 uIU/mL (0.47-4.68) L 08/05/16 11:05 Free T4 0.91 ng/dL (0.78-2.19) 08/05/16 11:05 Urine Color Yellow 08/05/16 02:30 Urine Appearance Cloudy A 08/05/16 02:30 Urine pH 5.5 (5-7) 08/05/16 02:30 Ur Specific [place] 1.020 (0.001-1.035) 08/05/16 02:30 Urine Protein 30mg/dl (1+) (NEG - TRACE) A 08/05/16 02:30 Urine Ketones Negative (NEGATIVE) 08/05/16 02:30 Urine Blood 50 alisia/ul (2+) (NEGATIVE) A 08/05/16 02:30 Urine Nitrate Positive (NEGATIVE) A 08/05/16 02:30 Urine Bilirubin Negative (NEGATIVE) 08/05/16 02:30 Urine Urobilinogen Normal (NEG-1mg/dL) 08/05/16 02:30 Ur Leukocyte Esterase 25 wbc/ul (1+) (NEGATIVE) A 08/05/16 02:30 Urine RBC 5-10/hpf (0-5/hpf) A 08/05/16 02:30 Urine WBC >100/hpf (0-4/hpf) A 08/05/16 02:30 Ur Squamous Epith Cells 0-5/hpf (<= 15/hpf) 08/05/16 02:30 Urine Bacteria >50 organisms/hpf (<10/hpf) A 08/05/16 02:30 Urine Mucus None seen (Up to 25%) 08/05/16 02:30 Urine Glucose Normal (NEGATIVE) 08/05/16 02:30 Assessment and Plan - Date of Encounter Date of Encounter: 08/06/16 (1) Herpes zoster keratitis of right eye Status: Acute Current Visit: Yes (2) Herpes zoster ophthalmicus of right eye Status: Acute Current Visit: Yes (3) Confusion associated with infection Status: Acute Current Visit: Yes (4) UTI (urinary tract infection) Status: Acute Current Visit: Yes - Time Spent With Patient Total time spent with greater than 50% in coordination of care (as documented) at patient's floor/unit and/or counseling patient: Quality Questions - VTE Prophylaxis Assessment VTE Present on Admission?: No Patient at risk for venous thromboembolism?: Yes VTE Risk Level: High Risk Pharmaceutical VTE prophylaxis contraindication reason: N/A- VTE prophylaxsis ordered Mechanical VTE prophylaxis contraindication reason: N/A- VTE prophylaxsis ordered (4) UTI (urinary tract infection) Qualifiers: Urinary tract infection type: catheter-associated UTI Encounter type: initial encounter
[2016-08-06 09:44] LABS: NEUTROPHILS 95.8 % (54.0-75.0)
[2016-08-06] MEDS ORDERED: predniSONE 1 MG TABLET PO SCH (10:00)
[2016-08-06] MEDS: AMLODIPINE BESYLATE 5 MG TABLET PO SCH (10:02)
[2016-08-06] MEDS: ALLOPURINOL 100 MG TAB PO SCH (10:02)
[2016-08-06] MEDS: ERYTHROMYCIN BASE OPHTH 1 GM OINT RIGHTEYE SCH (10:05)
[2016-08-06] MEDS: ENOXAPARIN SODIUM 30 MG/0.3 ML SYR SUBCUT SCH (10:05)
[2016-08-06] MEDS: NORMAL SALINE 1,000 ML IV SCH (10:18)
[2016-08-06] MEDS: CEPHALEXIN 125 MG/5 ML PO SCH (10:42)
[2016-08-06] MEDS ORDERED: AZITHROMYCIN 250 MG TABLET PO SCH (12:00)
[2016-08-06] MEDS ORDERED: cefTRIAXone SODIUM 1,000 MG in NORMAL SALINE MINI-BAG+ 100 ML IV SCH (12:00)
--- NOTE | 2016-08-06 13:29 | RADIOLOGY REPORT ---
Two views of the chest demonstrate the heart and vessels to be unremarkable. Retrocardiac infiltrate is identified. A small amount of left pleural fluid is noted. Lung bergeron are otherwise clear. IMPRESSION: Retrocardiac infiltrate with left pleural fluid. Findings were reviewed with Dr. Sena upon completion of exam. [facility]
[2016-08-06] MEDS: ACETAMINOPHEN 325 MG TABLET PO PRN (14:09)
[2016-08-06 14:12] VITALS: BP 166/64; PULSE 94; RESP 20; TEMP 99.2
--- NOTE | 2016-08-06 14:34 | DC SUMMARY: IM Note ---
Discharge Summary: IM/Peds Provider: Date of Admission: 08/04/16 Admitting Provider: EJ PAGE MD Attending Provider: EJ PAGE MD Discharging Provider: EJ PAGE MD Primary Care Provider: Discharge Date: 08/06/16 Consults: 08/04/16 15:06 pharm [Pharmacy Consult] [CONS] Routine Reason: Medication reconciliation. 08/05/16 07:27 Neurology Consult [CONS] Routine Reason: Confusion; concerns for Zoster encephalitis; known UTI 08/06/16 09:46 Urology Consult [CONS] Routine Reason: Urinary retention; self-caths; UTI; consider suprapubic cath - Diagnosis (1) Herpes zoster keratitis of right eye Status: Acute (2) Herpes zoster ophthalmicus of right eye Status: Acute (3) Confusion associated with infection Status: Acute (4) UTI (urinary tract infection) Status: Acute Qualifiers: Urinary tract infection type: catheter-associated UTI Encounter type: initial encounter (5) Pneumonia Status: Acute Qualifiers: Pneumonia type: due to unspecified organism Laterality: left Lung location: lower lobe of lung Qualified Code(s): J18.1 - Lobar pneumonia, unspecified organism (6) Hypoxemia Status: Acute (7) Encephalopathy Status: Acute - Time Spent with Patient Total time spent providing and/or coordinating discharge services: Time with patient DS: Greater than 30 minutes Discharge - Patient/Caregiver Discharge Instructions Activity Level: As tolerated. He has not been able to get up due to extreme fatigue. Diet: Renal diet. Follow up: NARDA WAGNER MD [MD] - 09/08/16 10:00 am (Here in [place]) NARDA MARIO MD [ACTIVE (Staff Physician)] - 08/14/16 1:30 pm (PT HAS A FOLLOW UP APPT WITH DR MARIO IN [facility] 08-14-16 @ 1: 30PM ) Overall discharge status: patient is not back to baseline Print Language: FAROESE Disposition: [facility] Discharge Summary Data - Medication History Medication History: Home Medications Allopurinol [Zyloprim*] 100 mg PO BID 08/04/16 Amlodipine Besylate [Norvasc*] 10 mg PO DAILY 08/04/16 Valacyclovir [Valtrex*] 500 mg PO Q8H 08/04/16 predniSONE [Deltasone*] 30 mg PO DIRECTED 08/04/16 Inpatient Medications 08/04/16 16:00 Normal Saline [Sodium Chloride 0.9% 1000 ml] 1,000 ml IV CONT 08/04/16 21:00 Allopurinol [Zyloprim] 100 mg PO BID Erythromycin Base Ophth [Ilotycin Ophth] 0 applic RIGHTEYE BID 08/05/16 09:00 Amlodipine Besylate [Norvasc] 10 mg PO DAILY 08/05/16 10:30 Acyclovir [Zovirax] 740 mg Normal Saline [Sodium Chloride 0.9% 100 ml] 100 ml IV Q8H 08/05/16 11:30 Cephalexin [Keflex] 500 mg PO Q12H 08/06/16 09:00 predniSONE [Deltasone] 50 mg PO DAILY 08/06/16 12:00 Azithromycin [Zithromax] 500 mg PO ONCE@1200 cefTRIAXone SODIUM [Rocephin] 1,000 mg Normal Saline Mini-Bag+ [Sodium Chloride 100 ml Mini-Bag Plus] 100 ml IV Q24H 08/07/16 12:00 Enoxaparin Sodium [Lovenox] 30 mg SUBCUT DAILY Procedures and tests throughout hospitalization: Completed Lab Orders 08/04/16 10:58 HEPATIC PANEL [CHEM] Stat 08/05/16 02:30 urinalysis [UA W/ MICRO -CULTURE IF IND] [URINE] Routine 08/05/16 05:35 BMP [BASIC METABOLIC PANEL] [CHEM] AMDRAW CBC AUTO DIF, MDIF/RMOR IF IND [HEM] AMDRAW 08/05/16 11:05 ESR [ERYTHROCYTE SEDIMENTATION RATE] [HEM] Stat FREE T4 [CHEM] Routine THYROID STIMULATING HORMONE [CHEM] Stat crp arthritis [C-REACTIVE PROTEIN] [CHEM] Stat 08/05/16 11:20 B12 [VITAMIN B12] [CHEM] Routine FOLATES [CHEM] Routine 08/06/16 09:15 BMP [BASIC METABOLIC PANEL] [CHEM] Stat BNP,NT-PRO [CHEM] Stat CBC AUTO DIF, MDIF/RMOR IF IND [HEM] Stat Completed Imaging Orders 08/05/16 08:29 MRI [BRAIN W/WO CONTRAST 76635] [MRI] Stat 08/06/16 08:55 [id number] [CXR 2V 13387] [RAD] Routine Pending Orders 08/04/16 15:06 Admit: Inpatient Routine pharm [Pharmacy Consult] [CONS] Routine 08/04/16 16:00 Normal Saline [Sodium Chloride 0.9% 1000 ml] 1,000 ml IV CONT 08/04/16 21:00 Allopurinol [Zyloprim] 100 mg PO BID Erythromycin Base Ophth [Ilotycin Ophth] 0 applic RIGHTEYE BID 08/04/16 Dinner Regular [DIET] 08/05/16 02:30 URINE CULTURE [RM] Routine 08/05/16 06:30 BLOOD CULTURE [BC] Stat 08/05/16 07:27 Neurology Consult [CONS] Routine 08/05/16 09:00 Amlodipine Besylate [Norvasc] 10 mg PO DAILY 08/05/16 10:30 Acyclovir [Zovirax] 740 mg Normal Saline [Sodium Chloride 0.9% 100 ml] 100 ml IV Q8H 08/05/16 10:34 Mini Mental Status Exam (MMSE) ONCE 08/05/16 11:30 Cephalexin [Keflex] 500 mg PO Q12H 08/05/16 22:04 URINE CULTURE [RM] Routine 08/06/16 09:00 predniSONE [Deltasone] 50 mg PO DAILY 08/06/16 09:03 Incentive Spirometry Q1H Respiratory Therapy Consult [RT] Routine 08/06/16 09:42 CSF CULTURE AND GRAM STAIN [RM] Stat CSF GLUCOSE [CHEM] Stat CSF TOTAL PROTEIN [CHEM] Stat WBC WITH DIF, CSF [HEM] Stat 08/06/16 09:46 Urology Consult [CONS] Routine 08/06/16 10:16 UA W/ MICRO -CULTURE IF IND [URINE] Routine 08/06/16 11:55 SPUTUM CULTURE AND GRAM STAIN [RM] Stat 08/06/16 12:00 Azithromycin [Zithromax] 500 mg PO ONCE@1200 cefTRIAXone SODIUM [Rocephin] 1,000 mg Normal Saline Mini-Bag+ [Sodium Chloride 100 ml Mini-Bag Plus] 100 ml IV Q24H 08/07/16 12:00 Enoxaparin Sodium [Lovenox] 30 mg SUBCUT DAILY Labs on day of discharge: Labs from last 24 hours 08/06/16 09:15 WBC 14.0 H RBC 4.91 Hgb 16.6 Hct 48.2 MCV 98.3 MCH 33.8 MCHC 34.4 RDW 12.9 Plt Count 190 MPV 7.7 Neutrophils % 95.8 H Lymphocytes % 2.5 L Eosinophils % 0.0 Basophils % 0.7 Neutrophils # 13.5 H Lymphocytes # 0.3 L Monocytes 1.0 L Monocytes # 0.1 L Eosinophils # 0.0 Basophils # 0.1 Sodium 144 Potassium 3.7 Chloride 115 H Carbon Dioxide 21 L BUN 32 H Creatinine 1.3 GFR Calculation Not Reportable Glucose 170 H Calcium 8.3 L NT-Pro-B Natriuret Pep 1010 H Preliminary micro results at discharge 08/05/16 02:30 Urine Culture - Preliminary Urine,Catheterized Gram Negative Bacillus 08/05/16 06:30 Blood Culture - Preliminary Blood NO GROWTH TO DATE 08/05/16 06:30 Blood Culture - Preliminary Blood NO GROWTH TO DATE - Impressions Jp was admitted with zoster of the right trigeminal dermatome. He was started on acyclovir 10 mg/KG IV Q8H as he presented with some confusion. IV Solumedrol also started which was transitioned to oral prednisone today. CT head and MRI brain negative other than age-related atrophy. Neurology evaluation by Dr. 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 Labs unremarkable other than low TSH and normal FT4. Jp's confusion has continued with worsening hallucinations and confabulations. Nurse food service clerk consulted today to do LP. However, unfortunately prophylactic Lovenox had already been given this morning. Jp's lung exam greatly worsened this morning with rales and poor air movement. He has received IVF throughout his hospital stay due to IV acyclovir. CXR showed retrocardiac infiltrate and small left pleural effusion. Rocephin 1and azithromycin given. He has required 2L of oxygen. He has a long-standing h/o urinary retention and does self-intermittent catheterization TID at home. He had an improper technique here. UCx >100,000 GNB. He has received 2 days of cephalexin. BCx NGTD. I have had long d/w Jp, his MPOA, Hari Montejo [phone] in [place], and hospital staff about my recommendations for transfer to a higher level of care. e will be transferred to [facility] under the care of hospitalist, Dr. Nena Ceja. IM: Discharge Physical Exam - I&O/Vital Signs I&O: Intake & Output 08/06/16 08/06/16 08/06/16 05:59 13:59 21:59 Other: Urine Appearance Cloudy Urine Color Straw Voiding Method Indwelling Catheter Vital Signs: Last Vital Signs Temp 37.3 C 08/06/16 14:09 Pulse 94 H 08/06/16 14:09 Resp 20 08/06/16 14:09 BP 166/64 08/06/16 14:09 Pulse Ox 90 08/06/16 14:09 Oxygen Flow Rate 2.5 Oxygen Delivery Method Nasal Cannula - Constitutional General appearance: Present: cooperative, disheveled, mild distress (2' anxiety of transfer. NO respiratory distress.q), thin - Head Head exam: Present: other (Vesicular rash in various stages of development in Right V1 distribution. ) - Eye Eye exam: Present: conjunctival injection (Scleral injection. R eye overall improving.), EOMI, periorbital swelling (Infraorbital redness and swelling improved. Pain with movements of EOM. ), PERRL, other (Pain with right EOM movement.) - ENT ENT exam: Present: mucous membranes moist - Neck Neck exam: Present: full ROM. Absent: lymphadenopathy, meningismus, tenderness - Respiratory Respiratory exam: Present: rales (Bibasilar rales, L>R with rhonchi throughout.) , rhonchi. Absent: accessory muscle use, respiratory distress - Cardiovascular Cardiovascular exam: Present: RRR (Distant). Absent: systolic murmur - GI/Abdominal GI/Abdominal exam: Present: distended (Mild.), hypoactive bowel sounds. Absent : mass, organomegaly - External exam: Present: other (Large hernia.) - Extremities Exam Extremities exam: Absent: calf tenderness, Glenn's Sign, edema, tenderness - Back Exam Back exam: Absent: CVA tenderness (L), CVA tenderness (R) - Neurological Exam Neurological exam: Present: altered (He confabulates and perseverates about losing a razor when he was on a diferent floor.), CN II-XII intact, oriented X3 , other (Is aware of confabulation yesterday. juan gutierrez that he attended medical conference here at [facility] [place] and does not recll ED visit at all. States taht he has had issues with his memeory for many years now.) - Psychiatric Psychiatric exam: Present: anxious (Mildly anxious at his baseline.) - Skin Skin exam: Present: rash (Zoster rash as above.), other (Senile purpura) - Allied Health Notes Allied health notes reviewed: case management, nursing (I have spoken extensively with nursing staff and case management.), RT (Multiple long d/w patient's nephew and MPOA, [phone]; nursing, SW, and case mgt.)
[2016-08-07] MEDS ORDERED: ENOXAPARIN SODIUM 30 MG/0.3 ML SYR SUBCUT SCH ×2 (12:00)
== END 2016-08-06 14:40 | disposition short-term general hospital (02) | DRG 124 ==
LOC: ER 10:07 → IN 12:59 → OBSVTOIN 12:59
PROVIDERS: ADMIT Family Medicine; ATTEND Family Medicine
DX: B02.39 Other herpes zoster eye disease (principal); B02.33 Zoster keratitis; N39.0 Urinary tract infection, site not specified; G93.40 Encephalopathy, unspecified; R15.9 Full incontinence of feces; I12.9 Hypertensive chronic kidney disease with stage 1 through stage 4 chronic kidney disease, or unspecified chronic kidney disease; N18.3 Chronic kidney disease, stage 3 (moderate); R33.0 Drug induced retention of urine; I87.2 Venous insufficiency (chronic) (peripheral); L85.3 Xerosis cutis; R41.82 Altered mental status, unspecified; Z79.82 Long term (current) use of aspirin; Z79.899 Other long term (current) drug therapy
CPT/HCPCS: 36415; 70450; 70553; 71020; 80048; 80076; 81001; 82607; 82747; 83880; 84439; 84443; 85025; 85651; 86140; 87040; 87070; 87077; 87086; 87186; 87205; 94760; 96365; 99285; J0696; J1650; J2930; J7030; J7512; Q0144

== ENCOUNTER 2016-08-11 11:42 | Inpatient (IN) | payer MEDICARE ==
[2016-08-11] MEDS ORDERED: HOME MEDICATION LIST NEEDED 1 EA EACH MC ONE (13:09)
[2016-08-11] MEDS ORDERED: NA PHOS,M-B/NA PHOS,DI-BA 133 ML BTL PR PRN (13:09)
[2016-08-11] MEDS ORDERED: POLYETHYLENE GLYCOL 3350 17 GM POWD.PACK PO PRN ×2 (13:09→22:47)
[2016-08-11] MEDS ORDERED: GLYCERIN ADULT 2 GM SUPP.RECT RECTAL PRN (13:09)
[2016-08-11] MEDS ORDERED: ACETAMINOPHEN 325 MG TABLET PO PRN ×2 (13:09→22:47)
[2016-08-11] MEDS ORDERED: MAG-AL PLUS XS SUSP 30 ML UDC PO PRN (13:09)
[2016-08-11] MEDS ORDERED: BISACODYL 10 MG SUPP.RECT PR PRN (13:09)
[2016-08-11] MEDS ORDERED: MAGNESIUM HYDROXIDE 30 ML UDC PO PRN (13:09)
[2016-08-11 21:55] LABS: URINE APPEARANCE TURBID; URINE COLOR YELLOW; URINE LEUKOCYTE ESTERASE 500 WBC/uL (3+) (NEGATIVE); URINE MUCUS NONE SEEN (Up to 25%); URINE NITRITE POSITIVE (NEGATIVE); URINE PH 6.5 (5-7); URINE SPECIFIC GRAVITY 1.025 (0.001-1.035); URINE SQUAMOUS EPITHELIAL CELL NONE SEEN (<= 15/hpf)
[2016-08-11 21:56] LABS: URINE BACTERIA >50 ORGANISMS/hpf (<10/hpf); URINE BILIRUBIN NEGATIVE (NEGATIVE); URINE BLOOD 250 Ery/uL (3+) (NEGATIVE); URINE GLUCOSE NORMAL (NEGATIVE); URINE KETONE NEGATIVE (NEGATIVE); URINE PROTEIN 100mg/dL (2+) (NEG - TRACE); URINE UROBILINOGEN 0.2mg/dL (Normal) (NEG-1mg/dL)
[2016-08-11 21:57] LABS: URINE AMORPHOUS SEDIMENT UP TO 25%/lpf (Up to 25%); URINE SPERM NONE SEEN
[2016-08-11] MEDS ORDERED: SIMETHICONE CHEW 80 MG TABLET PO PRN (22:47)
[2016-08-11] MEDS ORDERED: ONDANSETRON ODT 4 MG TAB.RAPDIS PO PRN (22:49)
[2016-08-12 08:40] LABS: BASOPHIL# 0.1 X 10^3uL (0.0-0.1); BASOPHILS 0.8 % (0.0-2.0); EOSINOPHILS 4.7 % (0.0-6.0); EOSINOPHILS# 0.4 X 10^3uL (0.0-0.4); HEMATOCRIT 49.6 % (42.0-54.0); HEMOGLOBIN 17.2 g/dL (14.0-18.0); LYMPHOCYTES 11.7 % (20.0-40.0); MEAN CELL VOLUME 99.5 fL (80.0-100.0); MEAN CORPUS. HGB CONCENTRATION 34.6 g/dL (32.0-36.0); MEAN CORPUSCULAR HEMOGLOBIN 34.5 pg (29.0-35.0); MEAN PLATELET VOLUME 7.6 fL (7.4-10.4); MONOCYTES 6.5 % (2.0-10.0); MONOCYTES# 0.5 X 10^3uL (0.2-1.0); NEUTROPHILS 76.3 % (54.0-75.0); NEUTROPHILS# 6.4 X 10^3uL (2.6-6.7); PLATELET COUNT 187 X 10^3uL (130-440); RED BLOOD COUNT 4.99 X 10^6uL (4.20-6.10); RED CELL DISTRIBUTION WIDTH 12.8 % (11.5-14.5); WHITE BLOOD COUNT 8.4 X 10^3uL (3.9-10.7)
[2016-08-12 08:46] LABS: ALBUMIN 3.4 g/dL (3.5-5.0); ALKALINE PHOSPHATASE 61 U/L (38-126); ALT 38 U/L (21-72); AST 21 U/L (17-59); BILIRUBIN, DIRECT 0.2 mg/dL (0.0-0.4); BLOOD UREA NITROGEN 21 mg/dL (9-20); CHLORIDE 109 mmol/L (98-107); GLUCOSE 133 mg/dL (70-100); POTASSIUM 3.5 mmol/L (3.5-5.1); SODIUM 142 mmol/L (137-145); TOTAL PROTEIN 6.3 g/dL (6.3-8.2)
[2016-08-12] MEDS: GUAIFENESIN ER 600 MG TABLET PO SCH ×2 (11:22→20:37)
[2016-08-12] MEDS: CHOLECALCIFEROL 1,000 UNIT CAPSULE PO SCH (11:22)
[2016-08-12] MEDS: ALLOPURINOL 100 MG TAB PO SCH ×2 (11:22→20:37)
[2016-08-12] MEDS: AMLODIPINE BESYLATE 5 MG TABLET PO SCH (11:22)
[2016-08-12] MEDS: AZITHROMYCIN 250 MG TABLET PO SCH (11:22)
[2016-08-12] MEDS: VITAMIN B COMPLEX 1 TABLET PO SCH (11:25)
[2016-08-12] MEDS: ERYTHROMYCIN BASE OPHTH 1 GM OINT RIGHTEYE SCH ×2 (11:35→20:37)
[2016-08-12] MEDS ORDERED: ALBUTEROL 0.083% 2.5 MG/3 ML VIAL.NEB INHALATION PRN (12:50)
--- NOTE | 2016-08-12 12:58 | PROGRESS NOTE: IM APSO ---
Assessment and Plan - Date of Encounter Date of Encounter: 08/12/16 (1) Herpes zoster ophthalmicus of right eye Status: Acute Assessment and plan: Resolving. Now off of antiviral medications and steroids. Ophthalmologic symptoms are improving. No evidence of encephalitis by prior evaluation during hospitalization. Pain is reasonably well controlled with low-dose hydrocodone. He remains on erythromycin ophthalmologic ointment. Continue supportive care. Current Visit: No (2) Confusion associated with infection Status: Acute Assessment and plan: Multifactorial with acute infections. No focal neurologic symptoms. Gradually improving. Prior lumbar puncture was negative. Continue supportive care. Continue to treat VZV, pneumonia, UTI. Current Visit: No (3) Pneumonia Status: Acute Assessment and plan: Left lower lobe pneumonia. Remains on cephalosporin and azithromycin. Mild wheezing and will add albuterol. Hold off on steroids. Continue O2. Current Visit: No (4) UTI (urinary tract infection) Status: Acute Assessment and plan: Already started on treatment for Klebsiella UTI which was present at the beginning of his hospitalization. In the setting of urinary retention and recurrent self-catheterization. Urinalysis yesterday abnormal. Culture is pending. Continue cephalosporin. He is afebrile. No leukocytosis. Current Visit: No (5) Hypertension, benign Status: Chronic Assessment and plan: Mild hypertension in the acute setting. Continue on usual amlodipine and follow. Current Visit: Yes (6) Chronic renal failure, stage 3 (moderate) Status: Chronic Assessment and plan: Stable. Current Visit: No (7) DVT prophylaxis Status: Acute Assessment and plan: Lovenox. Current Visit: Yes - Time Spent With Patient Total time spent with greater than 50% in coordination of care (as documented) at patient's floor/unit and/or counseling patient: 16-24 minutes IM: PN Subjective General: confusion (mild cloudiness), pain (right face/scalp, better), visual disturbance (mild blurring, right eye), no fever, no chills HEENT: no headache Cardiovascular: no chest pain, no palpitations Respiratory: cough (minimal), sputum (mild), wheeze (mild), no SOB Gastrointestinal: no abdominal pain, no nausea, no vomiting Genitourinary: other (urinary retention, baseline) Integumentary: rashes (right V1 distribution) Neurological: no numbness, no tingling IM: PN Objective Exam - I&O/Vital Signs I&O: Intake & Output 08/11/16 08/12/16 08/12/16 21:59 05:59 13:59 Intake Total 400 0 Output Total 500 500 Balance -100 -500 Weight 74.843 kg Intake: Oral 400 0 Output: Urine 500 500 Straight 500 Other: Urine Appearance Cloudy Urine Color Light Fozia Straight Light Fozia Voiding Method Self-Catheterization Self-Catheterization Vital Signs: Last Vital Signs Temp 37.1 C 08/12/16 06:33 Pulse 59 L 08/12/16 06:33 Resp 22 08/12/16 06:33 BP 166/73 08/12/16 06:33 Pulse Ox 92 08/12/16 06:33 Oxygen Flow Rate 2 Oxygen Delivery Method Nasal Cannula - Constitutional General appearance: Present: average body habitus. Absent: acute distress - Head Head exam: Present: atraumatic - Eye Eye exam: Present: conjunctival injection (right), EOMI - ENT ENT exam: Present: mucous membranes dry - Neck Neck exam: Present: full ROM - Respiratory Respiratory exam: Present: decreased breath sounds, rales (left > right base), wheezes (mild expiratory, scattered). Absent: rhonchi - Cardiovascular Cardiovascular exam: Present: RRR, systolic murmur (1/6, left sternal border). Absent: S3, S4 - GI/Abdominal GI/Abdominal exam: Present: normal bowel sounds, soft. Absent: organomegaly, rebound, rigid, tenderness - Extremities Exam Extremities exam: Present: other (stasis changes). Absent: calf tenderness, edema - Neurological Exam Neurological exam: Present: oriented X3 - Psychiatric Psychiatric exam: Absent: anxious, depressed - Skin Skin exam: Present: rash (crusted cluster resolving lesions involving right V1 distribution) - Allied Health Notes Allied health notes reviewed: nursing - Lab Labs: Laboratory Last Values WBC 8.4 X 10^3uL (3.9-10.7) 08/12/16 08:15 RBC 4.99 X 10^6uL (4.20-6.10) 08/12/16 08:15 Hgb 17.2 g/dL (14.0-18.0) 08/12/16 08:15 Hct 49.6 % (42.0-54.0) 08/12/16 08:15 MCV 99.5 fL (80.0-100.0) 08/12/16 08:15 MCH 34.5 pg (29.0-35.0) 08/12/16 08:15 MCHC 34.6 g/dL (32.0-36.0) 08/12/16 08:15 RDW 12.8 % (11.5-14.5) 08/12/16 08:15 Plt Count 187 X 10^3uL (130-440) 08/12/16 08:15 MPV 7.6 fL (7.4-10.4) 08/12/16 08:15 Neutrophils % 76.3 % (54.0-75.0) H 08/12/16 08:15 Lymphocytes % 11.7 % (20.0-40.0) L 08/12/16 08:15 Eosinophils % 4.7 % (0.0-6.0) 08/12/16 08:15 Basophils % 0.8 % (0.0-2.0) 08/12/16 08:15 Neutrophils # 6.4 X 10^3uL (2.6-6.7) 08/12/16 08:15 Lymphocytes # 1.0 X 10^3uL (0.8-3.8) 08/12/16 08:15 Monocytes 6.5 % (2.0-10.0) 08/12/16 08:15 Monocytes # 0.5 X 10^3uL (0.2-1.0) 08/12/16 08:15 Eosinophils # 0.4 X 10^3uL (0.0-0.4) 08/12/16 08:15 Basophils # 0.1 X 10^3uL (0.0-0.1) 08/12/16 08:15 Sodium 142 mmol/L (137-145) 08/12/16 08:15 Potassium 3.5 mmol/L (3.5-5.1) 08/12/16 08:15 Chloride 109 mmol/L (98-107) H 08/12/16 08:15 Carbon Dioxide 25 mmol/L (22-30) 08/12/16 08:15 BUN 21 mg/dL (9-20) H 08/12/16 08:15 Creatinine 1.3 mg/dL (0.7-1.3) 08/12/16 08:15 GFR Calculation Not Reportable 08/12/16 08:15 Glucose 133 mg/dL (70-100) H 08/12/16 08:15 Calcium 9.0 mg/dL (8.4-10.2) 08/12/16 08:15 Total Bilirubin 1.0 mg/dL (0.2-1.3) 08/12/16 08:15 Direct Bilirubin 0.2 mg/dL (0.0-0.4) 08/12/16 08:15 AST 21 U/L (17-59) 08/12/16 08:15 ALT 38 U/L (21-72) 08/12/16 08:15 Alkaline Phosphatase 61 U/L (38-126) 08/12/16 08:15 Total Protein 6.3 g/dL (6.3-8.2) 08/12/16 08:15 Albumin 3.4 g/dL (3.5-5.0) L 08/12/16 08:15 Urine Color Yellow 08/11/16 21:39 Urine Appearance Turbid A 08/11/16 21:39 Urine pH 6.5 (5-7) 08/11/16 21:39 Ur Specific Dorsey 1.025 (0.001-1.035) 08/11/16 21:39 Urine Protein 100mg/dl (2+) (NEG - TRACE) A 08/11/16 21:39 Urine Ketones Negative (NEGATIVE) 08/11/16 21:39 Urine Blood 250 alisia/ul (3+) (NEGATIVE) A 08/11/16 21:39 Urine Nitrate Positive (NEGATIVE) A 08/11/16 21:39 Urine Bilirubin Negative (NEGATIVE) 08/11/16 21:39 Urine Urobilinogen 0.2mg/dl (normal) (NEG-1mg/dL) 08/11/16 21:39 Ur Leukocyte Esterase 500 wbc/ul (3+) (NEGATIVE) A 08/11/16 21:39 Urine RBC 25-50/hpf (0-5/hpf) A 08/11/16 21:39 Urine WBC >100/hpf (0-4/hpf) A 08/11/16 21:39 Ur Squamous Epith Cells None seen (<= 15/hpf) 08/11/16 21:39 Amorphous Sediment Up to 25%/lpf (Up to 25%) 08/11/16 21:39 Urine Bacteria >50 organisms/hpf (<10/hpf) A 08/11/16 21:39 Urine Mucus None seen (Up to 25%) 08/11/16 21:39 Urine Sperm None seen 08/11/16 21:39 Urine Glucose Normal (NEGATIVE) 08/11/16 21:39 Quality Questions - VTE Prophylaxis Assessment VTE Present on Admission?: No Patient at risk for venous thromboembolism?: Yes VTE Risk Level: High Risk Pharmaceutical VTE prophylaxis contraindication reason: N/A- VTE prophylaxsis ordered Mechanical VTE prophylaxis contraindication reason: not indicated (3) Pneumonia Qualifiers: Pneumonia type: due to unspecified organism Laterality: left Lung location: lower lobe of lung Qualified Code(s): J18.1 - Lobar pneumonia, unspecified organism (4) UTI (urinary tract infection) Qualifiers: Urinary tract infection type: catheter-associated UTI Indwelling urinary catheter type: unspecified Encounter type: subsequent encounter Qualified Code (s): T83.511D - Infection and inflammatory reaction due to indwelling urethral catheter, subsequent encounter; N39.0 - Urinary tract infection, site not specified
[2016-08-12] MEDS: MELATONIN 3 MG TABLET PO SCH (20:37)
--- NOTE | 2016-08-13 09:16 | PROGRESS NOTE: IM SOAP ---
IM: PN Subjective General: confusion (mild cloudiness), pain (right face/scalp, better), visual disturbance (mild blurring, right eye, but improving), no fever, no chills HEENT: no headache Cardiovascular: no chest pain, no palpitations Respiratory: cough (minimal; chronic), sputum (; chronic.), no wheeze (resolved. ), no SOB Gastrointestinal: diarrhea (chronic diarrhea and constipation.), constipation, no abdominal pain, no nausea, no vomiting Genitourinary: other (urinary retention, baseline. He is doing intermittent self catheterization 3 x daily.) Integumentary: rashes (right V1 distribution) Neurological: no numbness, no tingling IM: PN Objective Exam - I&O/Vital Signs I&O: Intake & Output 08/12/16 08/13/16 08/13/16 21:59 05:59 13:59 Intake Total 0 460 Output Total 850 950 Balance -850 -490 Intake: Oral 0 460 Output: Urine 850 950 Straight 350 Other: Urine Appearance Cloudy Clear Urine Color Light Fozia Yellow Straight Dark Fozia Voiding Method Self-Catheterization Self-Catheterization # Voids 2 Vital Signs: Last Vital Signs Temp 37.0 C 08/13/16 07:00 Pulse 57 L 08/13/16 07:00 Resp 18 08/13/16 07:00 BP 155/70 08/13/16 07:00 Pulse Ox 92 08/13/16 07:00 Oxygen Flow Rate 2 Oxygen Delivery Method Room Air - Constitutional General appearance: Present: average body habitus, cooperative, disheveled. Absent: acute distress - Head Head exam: Present: atraumatic - Eye Eye exam: Present: conjunctival injection (right), EOMI (minimal pain now with extraocular movement), PERRL - ENT ENT exam: Present: mucous membranes dry - Neck Neck exam: Present: full ROM - Respiratory Respiratory exam: Present: decreased breath sounds. Absent: rales (No rales her today.), rhonchi, wheezes (no wheezes today.) - Cardiovascular Cardiovascular exam: Present: RRR, systolic murmur (1/6, left sternal border). Absent: S3, S4 - GI/Abdominal GI/Abdominal exam: Present: normal bowel sounds, soft. Absent: organomegaly, rebound, rigid, tenderness - Extremities Exam Extremities exam: Present: other (stasis changes with pigmentation; very dry.). Absent: calf tenderness, edema - Back Exam Back exam: Absent: CVA tenderness (L), CVA tenderness (R) - Neurological Exam Neurological exam: Present: alert, oriented X3 - Psychiatric Psychiatric exam: Present: anxious (at his baseline.). Absent: depressed - Skin Skin exam: Present: rash (crusted cluster resolving lesions involving right V1 distribution) - Allied Health Notes Allied health notes reviewed: case management, nursing, OT, PT - Lab Labs: Laboratory Last Values WBC 8.4 X 10^3uL (3.9-10.7) 08/12/16 08:15 RBC 4.99 X 10^6uL (4.20-6.10) 08/12/16 08:15 Hgb 17.2 g/dL (14.0-18.0) 08/12/16 08:15 Hct 49.6 % (42.0-54.0) 08/12/16 08:15 MCV 99.5 fL (80.0-100.0) 08/12/16 08:15 MCH 34.5 pg (29.0-35.0) 08/12/16 08:15 MCHC 34.6 g/dL (32.0-36.0) 08/12/16 08:15 RDW 12.8 % (11.5-14.5) 08/12/16 08:15 Plt Count 187 X 10^3uL (130-440) 08/12/16 08:15 MPV 7.6 fL (7.4-10.4) 08/12/16 08:15 Neutrophils % 76.3 % (54.0-75.0) H 08/12/16 08:15 Lymphocytes % 11.7 % (20.0-40.0) L 08/12/16 08:15 Eosinophils % 4.7 % (0.0-6.0) 08/12/16 08:15 Basophils % 0.8 % (0.0-2.0) 08/12/16 08:15 Neutrophils # 6.4 X 10^3uL (2.6-6.7) 08/12/16 08:15 Lymphocytes # 1.0 X 10^3uL (0.8-3.8) 08/12/16 08:15 Monocytes 6.5 % (2.0-10.0) 08/12/16 08:15 Monocytes # 0.5 X 10^3uL (0.2-1.0) 08/12/16 08:15 Eosinophils # 0.4 X 10^3uL (0.0-0.4) 08/12/16 08:15 Basophils # 0.1 X 10^3uL (0.0-0.1) 08/12/16 08:15 Sodium 142 mmol/L (137-145) 08/12/16 08:15 Potassium 3.5 mmol/L (3.5-5.1) 08/12/16 08:15 Chloride 109 mmol/L (98-107) H 08/12/16 08:15 Carbon Dioxide 25 mmol/L (22-30) 08/12/16 08:15 BUN 21 mg/dL (9-20) H 08/12/16 08:15 Creatinine 1.3 mg/dL (0.7-1.3) 08/12/16 08:15 GFR Calculation Not Reportable 08/12/16 08:15 Glucose 133 mg/dL (70-100) H 08/12/16 08:15 Calcium 9.0 mg/dL (8.4-10.2) 08/12/16 08:15 Total Bilirubin 1.0 mg/dL (0.2-1.3) 08/12/16 08:15 Direct Bilirubin 0.2 mg/dL (0.0-0.4) 08/12/16 08:15 AST 21 U/L (17-59) 08/12/16 08:15 ALT 38 U/L (21-72) 08/12/16 08:15 Alkaline Phosphatase 61 U/L (38-126) 08/12/16 08:15 Total Protein 6.3 g/dL (6.3-8.2) 08/12/16 08:15 Albumin 3.4 g/dL (3.5-5.0) L 08/12/16 08:15 Urine Color Yellow 08/11/16 21:39 Urine Appearance Turbid A 08/11/16 21:39 Urine pH 6.5 (5-7) 08/11/16 21:39 Ur Specific [place] 1.025 (0.001-1.035) 08/11/16 21:39 Urine Protein 100mg/dl (2+) (NEG - TRACE) A 08/11/16 21:39 Urine Ketones Negative (NEGATIVE) 08/11/16 21:39 Urine Blood 250 alisia/ul (3+) (NEGATIVE) A 08/11/16 21:39 Urine Nitrate Positive (NEGATIVE) A 08/11/16 21:39 Urine Bilirubin Negative (NEGATIVE) 08/11/16 21:39 Urine Urobilinogen 0.2mg/dl (normal) (NEG-1mg/dL) 08/11/16 21:39 Ur Leukocyte Esterase 500 wbc/ul (3+) (NEGATIVE) A 08/11/16 21:39 Urine RBC 25-50/hpf (0-5/hpf) A 08/11/16 21:39 Urine WBC >100/hpf (0-4/hpf) A 08/11/16 21:39 Ur Squamous Epith Cells None seen (<= 15/hpf) 08/11/16 21:39 Amorphous Sediment Up to 25%/lpf (Up to 25%) 08/11/16 21:39 Urine Bacteria >50 organisms/hpf (<10/hpf) A 08/11/16 21:39 Urine Mucus None seen (Up to 25%) 08/11/16 21:39 Urine Sperm None seen 08/11/16 21:39 Urine Glucose Normal (NEGATIVE) 08/11/16 21:39 Assessment and Plan - Date of Encounter Date of Encounter: 08/13/16 (1) Herpes zoster keratitis of right eye Status: Acute Assessment and plan: He was treated with 7 days of IV acyclovir as a shorter course of steroids. His zoster slowly improving. Continue erythromycin eye ointment. He has follow- up appointment with adjuster leader< Dr. Vegas later this week. Current Visit: No (2) Herpes zoster ophthalmicus of right eye Status: Acute Assessment and plan: As above. 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 He is improved since transfer to [facility]. Occupational therapist at [facility] recommended that Jp have 24-hour, 7 day per week care while living independently at home. His nephew who is his medical power of glass scullion will be coming into town this weekend. Probable discharge for Jp on August 16 or August 17. Current Visit: No (4) Pneumonia Status: Acute Assessment and plan: Chest x-ray here showed retrocardiac infiltrate with left pleural effusion. Repeat chest x-ray at [facility] confirmed left lower lobe infiltrate. He has been treated with Rocephin, azithromycin, and is now on Ceftin. I will discontinue Ceftin after tomorrow's dose for a total of 10 days of antibiotics. Continue oxygen as needed as well as incentive spirometer and respiratory therapy consult. Continue duo nebulizers. Current Visit: No (5) UTI (urinary tract infection) Status: Acute Current Visit: No (6) Hypertension, benign Status: Chronic Assessment and plan: Blood pressures are stable on amlodipine. Current Visit: Yes (7) Chronic renal failure, stage 3 (moderate) Status: Chronic Assessment and plan: His creatinine is currently 1.3 and greatly improved from prior baseline of 1.7. He is probably chronically dehydrated at home. Current Visit: No (8) DVT prophylaxis Status: Acute Assessment and plan: Lovenox. Ambulation 3 times a day. Current Visit: Yes - Time Spent With Patient Total time spent with greater than 50% in coordination of care (as documented) at patient's floor/unit and/or counseling patient: Estimated anticipated discharge: 4-5n days Quality Questions - VTE Prophylaxis Assessment VTE Present on Admission?: No Patient at risk for venous thromboembolism?: Yes VTE Risk Level: High Risk Pharmaceutical VTE prophylaxis contraindication reason: N/A- VTE prophylaxsis ordered Mechanical VTE prophylaxis contraindication reason: N/A- VTE prophylaxsis ordered (4) Pneumonia Qualifiers: Pneumonia type: due to unspecified organism Laterality: left Lung location: lower lobe of lung Qualified Code(s): J18.1 - Lobar pneumonia, unspecified organism (5) UTI (urinary tract infection) Qualifiers: Urinary tract infection type: catheter-associated UTI Indwelling urinary catheter type: unspecified Encounter type: subsequent encounter Qualified Code (s): T83.511D - Infection and inflammatory reaction due to indwelling urethral catheter, subsequent encounter; N39.0 - Urinary tract infection, site not specified
[2016-08-13] MEDS: AZITHROMYCIN 250 MG TABLET PO SCH (09:58)
[2016-08-13] MEDS: GUAIFENESIN ER 600 MG TABLET PO SCH ×2 (09:59→20:33)
[2016-08-13] MEDS: ALLOPURINOL 100 MG TAB PO SCH ×2 (09:59→20:33)
[2016-08-13] MEDS: VITAMIN B COMPLEX 1 TABLET PO SCH (10:00)
[2016-08-13] MEDS: CHOLECALCIFEROL 1,000 UNIT CAPSULE PO SCH (10:00)
[2016-08-13] MEDS: AMLODIPINE BESYLATE 5 MG TABLET PO SCH (10:05)
[2016-08-13] MEDS: ENOXAPARIN SODIUM 30 MG/0.3 ML SYR SUBCUT SCH (10:07)
[2016-08-13] MEDS: ERYTHROMYCIN BASE OPHTH 1 GM OINT RIGHTEYE SCH ×2 (12:36→20:34)
[2016-08-13] MEDS: MELATONIN 3 MG TABLET PO SCH (20:33)
[2016-08-14] MEDS: AMLODIPINE BESYLATE 5 MG TABLET PO SCH (08:32)
[2016-08-14] MEDS: GUAIFENESIN ER 600 MG TABLET PO SCH ×2 (08:32→20:31)
[2016-08-14] MEDS: ENOXAPARIN SODIUM 30 MG/0.3 ML SYR SUBCUT SCH (08:32)
[2016-08-14] MEDS: ERYTHROMYCIN BASE OPHTH 1 GM OINT RIGHTEYE SCH ×2 (08:32→20:31)
[2016-08-14] MEDS: CHOLECALCIFEROL 1,000 UNIT CAPSULE PO SCH (08:32)
[2016-08-14] MEDS: VITAMIN B COMPLEX 1 TABLET PO SCH (08:32)
[2016-08-14] MEDS: ALLOPURINOL 100 MG TAB PO SCH ×2 (08:32→20:31)
--- NOTE | 2016-08-14 08:41 | HISTORY & PHYSICAL ---
History of Present Illness (Laura Sena MD; 08/13/2016 7:12 PM) Patient words: Here for rehabilitation. The patient is a 86 year old male who presents with shingles. Jp is here for rehabilitation. He was originally admitted to [facility] on 08/04 for zoster of right eye in trigeminal distribution. He had associated encephalopathy which worsened throughout his hospital stay. He developed a catheter associated urinary tract infection and pneumonia. Due to concerns of herpes zoster encephalitis, he was transferred to [facility] for lumbar puncture and further evaluation. His lumbar puncture was negative, including negative herpes zoster PCR. He received a total of 7 days of IV acyclovir. He was also treated with IV steroids that at least partially contributed to his altered mental status. His UTI and pneumonia were treated with Rocephin, azithromycin, and ultimately Ceftin. He was transferred back to [facility] as a swing bed on August 11, 2016. He states that he overall is doing much better. He is not having the hallucinations and confabulations that he had prior to transfer. He still has some blurred vision of his right eye. However, his zoster rash is slowly improving. Problem List/Past Medical (Laura Sena MD; 08/13/2016 6:45 PM) Herpes zoster keratitis of right eye (B02.33)08/04/2016 08/04/16. Ataxia (781.3) (R27.0) Confusion associated with infection (R41.0) Essential hypertension (I10) Urinary tract infection associated with catheterization of urinary tract, unspecified indwelling urinary catheter type, subsequent encounter (T83.511D) Pneumonia of left lower lobe due to infectious organism (J18.1) Herpes zoster ophthalmicus of right eye (B02.30) 08/04/16. Venous insufficiency (459.81) (I87.8) Urinary retention (R33.9) Chronic. self-catheterization three times daily. Urology: Dr. Velazco. Chronic kidney disease, stage III (moderate) (N18.3) Baseline 1.7-1.9. Has a h/ o ARF with creatinine to 4.6. Seen by nephrology, Dr. Mendez 01/20; with recommendation BP remain below systolic less than 130. Stage G3b. Encephalopathy acute (G93.40) Hypoxemia (R09.02) Hypertensive retinopathy, bilateral (H35.033) chronic Cataract cortical, senile, bilateral (H25.013) Stasis edema with ulcer of right lower extremity (I87.311) Osteopenia of multiple sites (M85.89) He has had 4 bone mineral density tests in the past without significant change. Given his age, further BMDs not indicated. Controlled gout (M10.9) Cardiac dysrhythmias (427.89) Sinus bradycardia which is asymptomatic and mostly only at night while he is sleeping. He has been evaluated by cardiology and no treatment recommended. 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) Dry skin dermatitis (L85.3) Bilateral impacted cerumen (H61.23) Open wound of right lower leg, subsequent encounter (S81.801D) Abrasion of right lower leg (S80.811A) Open wound of right lower leg, initial encounter (S81.801A) Rectal mass (K62.9) Hammertoe (M20.40) Back pain (M54.9) Overweight (E66.3) Breast mass in male (N63) Dietary counseling and surveillance (Z71.3) Cellulitis of hand, left (682.4) Dorsum Renal failure, acute (584.9) Skin tear of elbow without complication (S51.019A) CELLULITIS/ABSCESS, DIGIT NOS (L03.119) Stomatitis and mucositis (K12.1, K12.30) Tinea pedis (B35.3) Skin tear (879.8) L hand Cellulitis of the Foot, excluding Toes (L03.119, L02.619) Bronchospasm (519.11) Constipation (564.00) (K59.00) Diarrhea (787.91) (R19.7) Edema (782.3) (R60.9) Heme Positive Stool (792.1) Bursitis of right shoulder (M75.51) Difficulty in walking (719.7) Impingement syndrome of shoulder (726.2) Dysfunction of eustachian tube (381.81) (H69.80) Tendinosis (M67.90) Right shoulder (supraspinatus, infraspinatus, and biceps). Neck pain (723.1) (M54.2) Contusion of elbow (S50.00XA) Pain of right thumb (M79.644) Allergies (Laura Sena MD; 08/13/2016 6:45 PM) Sulfa Drugs (Bactrim, Pediazole, Septra...)03/06/2015 unknown reaction Family History (Laura Sena MD; 08/13/2016 6:45 PM) Sister of PE s/p surgery age 55 Mother 86, Carcinoid, OA Father 64, CVA, HTN No Significant Family Ocular History Social History (Laura Sena MD; 08/13/2016 7:08 PM) Current work status Retired. Worked for the [employer]. Marital status Single. He has never been . No children. 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 Lives alone. Alcohol use Drinks Rarely. Vehicle Driving Yes. Advance Planning Full Code. Advance Directives in the chart. Medical power of assistant county attorney is Hari balderas. Tobacco use Never smoker. None Past Surgical History (Laura Sena MD; 08/13/2016 6:45 PM) Nephrolithotomy, Removal of Calculi multiple Tonsillectomy and Adenoidectomy Hernia repair LIH Lithotripsy Arthroscopy of Knee Triad Injury Appendectomy Prostatectomy; [id number] Parathyroidectomy Other Problems (Laura Sena MD; 08/13/2016 6:45 PM) PREVNAR 13 - PNEUMO VAC(V03.82) [id number] Boostrix - Tdap V06.1) (Z23) Eczema (692.9) (L30.9) Urinary tract infection (599.0) (N39.0) Gout (274.9) Calculus of ureter (592.1) onset mid 70's, Nephrostomy 1991, Lithotripsy 1995, Dr. Sullivan Atopic dermatitis and related condition (691.8) (L20.9) Dr. Weathers Colon polyp (211.3) (K63.5)1989 BPH (600.00)1990 Self cath TID. Sees Dr. Sullivan yearly. He does rectal/ prostate exams. Review of Systems (Laura Sena MD; 08/13/2016 6:48 PM) General Present- Fatigue. Not Present- Fever. Skin Present- Dryness and Itching. HEENT Present- Blurred Vision (He still has blurred vision of his right eye.). Neck Not Present- Neck Pain and Neck Stiffness. Respiratory Present- Chronic Cough. Not Present- Shortness of Breath. Cardiovascular Not Present- Chest Pain and Edema. Gastrointestinal Present- Chronic diarrhea and Constipation. Not Present- Abdominal Pain and Bloating. Male Genitourinary Not Present- Dysuria. Note: History of urinary retention. He does intermittent self catheterizations 3 times daily. Musculoskeletal Present- Joint Pain (He has chronic diffuse joint pain.). Neurological Present- Decreased Memory (He complains of slowly progressive decrease in his memory.) and Tremor (Chronic.). Not Present- Headaches (He is no longer having headaches which he at the onset of his zoster.). Psychiatric Present- Anxiety. Hematology Present- Easy Bruising. Vitals (Laura Sena MD; 08/12/2016 8:54 PM) 08/11/2016 8:51 PM Weight: 165 lb Height: 69in Body Surface Area: 1.9 m Body Mass Index: 24.37 kg/m Temp.: 36.7C Pulse: 56 (Regular) Resp.: 16 (Unlabored) BP: 154/86 (Sitting, Left Arm, Standard) Physical Exam (Laura Sena MD; 08/13/2016 7:07 PM) General General Appearance-Not in acute distress, Sickly(Chronically ill appearing.) , Unkempt, Not Toxic. Orientation-Oriented X3. Build & Nutrition-Well nourished and Well developed. Integumentary General Appearance-normal turgor, brisk capillary refill and xerodermic. Rash-beefy red rash with pinpoint satellite lesions(Consistent with tinea pedis B.) and unilateral clustered vesicles on red patches limited to a dermatomal distribution.(Resolving zoster rash of right V1 distribution in various stages of healing. No lesions on his nose). Assessment of surgical incision: Location - Neck - anterior(Well healed.). Note: Multiple areas of livedo. General skin atrophy due to long-term steroid cream use. Head and Neck Neck Global Assessment - supple. Carotid Arteries - Bilateral - No Carotid Bruits. Thyroid Gland Characteristics - smooth, normal size and consistency and no palpable nodules. Eye Normal Exam-Extraocular movements intact and Pupils equal, round and reactive to light, accommodate to light. Note: He has decreased pain with extraocular movements. Fundi - Bilateral-No A-V nicking. Lens - Bilateral -Note: Arcus senilis present bilaterally. Sclera/Conjunctiva - Bilateral-Non purulent discharge and Conjunctival Injection(Conjunctival and scleral injection.). ENMT Ears External Auditory Canal - Bilateral - external auditory canal is impacted with cerumen(Partial cerumen impaction.). Otoscopic Exam - Tympanic Membrane - Bilateral - Normal and tympanic membrane is cheng in appearance. Nose and Sinuses Sinuses - Bilateral - Non-Tender. Mouth and Throat Nasopharynx - no swelling of pharyngeal mucosa. Oral Cavity/Oropharynx - Oral Mucosa - pink and moist. Oropharynx - No pharyngeal erythema. Chest and Lung Exam Inspection Movements - Symmetrical. Auscultation Breath sounds - Good breath sounds and Clear and Symmetric throughout. Adventitious sounds - No Adventitious sounds. Cardiovascular Auscultation Rhythm - Regular and Bradycardic(50s.). Heart Sounds - Normal heart sounds( But distant.). Murmurs & Other Heart Sounds - Auscultation of the heart reveals - No Murmurs, No Pericardial Friction Rubs and No Gallops. Abdomen Palpation/Percussion Palpation and Percussion of the abdomen reveal - Soft, Non Tender, No hepatosplenomegaly and No Palpable abdominal masses. Kidney (Left) - Other Characteristics - Non Tender. Kidney (Right) - Other Characteristics - Non Tender. Auscultation Auscultation of the abdomen reveals - Bowel sounds normal. Male Genitourinary Evaluation of genitourinary system reveals-Hernias(Large nonreducible right inguinal hernia. Nontender. Unchanged from prior exams.). Peripheral Vascular Upper Extremity Inspection - Bilateral - Not Acrocyanotic, No Digital clubbing. Palpation - Radial pulse - Bilateral - Normal. Edema - Bilateral - No edema. Lower Extremity Inspection - Bilateral - Loss of hair, Pigmented, Shiny atrophic skin, Thick rigid nails(Consistent with onychomycosis.) and Varicose veins, Not Acrocyanotic, No Varicose ulcers. Palpation - Tenderness - Bilateral - Non Tender. Dorsalis pedis pulse - Bilateral - 2+. Posterior tibial pulse - Bilateral - 2+. Edema - Bilateral - No edema. Neurologic Mental Status Thought content/perception - Normal. No confusion today. Cranial Nerves-Normal Bilaterally. Sensory-Normal. Motor Tone - Normal. Strength - 5/5 normal muscle strength - All Muscles. General Assessment of Reflexes-Normal. Neuropsychiatric The patient's mood and affect are described as -anxious. Thought Processes/Cognitive Function -Note: He states that he is no longer having hallucinations or confabulations. He is able to give a fairly accurate history. He remembers being at a hospital in [place]. He knows he was transferred back here to [facility]. Musculoskeletal Orthopedic Exam: Cervical Spine - Non Tender to Palpation. Thoracic Spine - Non-tender. Low Back - Non-Tender. Lymphatic Head & Neck General Head & Neck Lymphatics: Bilateral - Description - No Generalized lymphadenopathy. Axillary Supraclavicular Nodes: Bilateral - Supraclavicular Lymph Nodes - No supraclavicular lymphadenopathy. Femoral & Inguinal Generalized Femoral & Inguinal Lymphatics: Bilateral - Description - No Generalized lymphadenopathy. Assessment & Plan (Laura Sena MD; 08/13/2016 7:13 PM) Herpes zoster keratitis of right eye (B02.33) Story: 08/04/16. Impression: He was admitted to [facility] for HSV of right eye in V1 distribution. He had a full slit-lamp eye exam done by maintenance coordinator, Dr. Drake Vegas on the day of admission, 08/04/16. He has some corneal involvement, but no intraocular inflammation or vasculitis/retinitis. He is at risk of iritis of his right eye. He will have repeat slit-lamp eye exam this week with Dr. Vegas. He has completed his full course of IV acyclovir and steroids. Continue erythromycin ointment. Lumbar puncture done at [facility] showed only 2 white blood cells and herpes zoster virus PCR negative. Herpes zoster ophthalmicus of right eye (B02.30) Story: 08/04/16. Impression: As above. Confusion associated with infection (R41.0) Impression: He still has some confusion which has improved since transfer to [place]. He most likely has underlying mild dementia versus cognitive impairment which was previously undiagnosed and now has been accelerated by multiple medical insults of zoster, urosepsis, pneumonia, and hospitalization. Encephalopathy acute (G93.40) Impression: As above. Improving. His nephew is medical power of assistant county attorney. His nephew and niece are very involved in his care and live out of state. Jp and the family very much wish that Jp return to live independently at home with caregivers. I am skeptical that Jp will be able to maintain his independence. He will remain here at [facility] in the swing bed program until his nephew arrives at the end of the week. Occupational therapy at [facility] recommended 24-hour and 7 day week supervision while living independently. Pneumonia of left lower lobe due to infectious organism (J18.1) Impression: It is unclear if Jp truly had pneumonia versus fluid overload and atelectasis. However, chest x-ray here and repeat down to [place] both showed a left lower lobe infiltrate. He had small left pleural effusion here at [facility]. His sputum cultures were inadequate. His BCx were negative. He has been treated with Rocephin, azithromycin, and Ceftin. He is now stable on RA. Follow pulse ox. Respiratory consult. IS to bedside. Urinary tract infection associated with catheterization of urinary tract, unspecified indwelling urinary catheter type, subsequent encounter (T87.764V) Impression: He has been treated with cephalexin and now cefuroxime for catheter- associated UTI. Recheck U/A and UCx. Chronic kidney disease, stage III (moderate) (N18.3) Story: Baseline 1.7-1.9. Has a h/o ARF with creatinine to 4.6. Seen by nephrology, Dr. Mendez 01/20; with recommendation BP remain below systolic less than 130. Stage G3b. Impression: His creatinine has improved in the hospital with IVF. His most recent creatinine was 1.3 from baseline 1.7. Essential hypertension (I10) Impression: His BPs have been stable on amlodipine. Urinary retention (R33.9) Story: Chronic. self-catheterization three times daily. Urology: Dr. Velazco. Impression: He has an upcoming appointment with urology, Dr. Sullivan. His technique is not clean. Given his underlying dementia, it may be prudent to consider suprapubic catheter placement. Venous insufficiency (I87.8) Impression: He has chronic venous stasis changes with pigmentation. This is due in part to chronic overuse of topical steroids for treatment of dermatitis. He has had a history of venous stasis ulcers in the past. Continue liberal moisturizers. Exam stable for now. Ataxia (R27.0) Impression: He will continue to work with physical therapy throughout his swing bed stay to improve his balance and strengthening. Billing note:Initial [facility] care with swing bed admission history and physical August 13, 2016. CC: Dr. Drake Vegas; Dr. Matt Sullivan. [facility]
[2016-08-14] MEDS: MELATONIN 3 MG TABLET PO SCH (20:31)
[2016-08-15] MEDS: ALLOPURINOL 100 MG TAB PO SCH ×2 (09:46→20:15)
[2016-08-15] MEDS: CHOLECALCIFEROL 1,000 UNIT CAPSULE PO SCH (09:46)
[2016-08-15] MEDS: VITAMIN B COMPLEX 1 TABLET PO SCH (09:46)
[2016-08-15] MEDS: GUAIFENESIN ER 600 MG TABLET PO SCH ×2 (09:47→20:15)
[2016-08-15] MEDS: ENOXAPARIN SODIUM 30 MG/0.3 ML SYR SUBCUT SCH (09:47)
[2016-08-15] MEDS: ERYTHROMYCIN BASE OPHTH 1 GM OINT RIGHTEYE SCH ×2 (09:47→20:14)
[2016-08-15] MEDS: AMLODIPINE BESYLATE 5 MG TABLET PO SCH (09:47)
--- NOTE | 2016-08-15 10:59 | PROGRESS NOTE: IM APSO ---
Assessment and Plan - Date of Encounter Date of Encounter: 08/15/16 (1) Herpes zoster ophthalmicus of right eye Status: Acute Assessment and plan: Symptoms continue to slowly improve. Has completed week long course of IV Acyclovir. Lesions are now crusted and no new lesions noted. Patient feels vision is actually better at this time Current Visit: No (2) Confusion associated with infection Status: Acute Assessment and plan: Each day continues to have some improvement but still more confused than prior baseline. Currently here for swing bed and plan for d/c home next week when family arrives to [facility] (first nephew, then niece) Current Visit: No (3) UTI (urinary tract infection) Status: Acute Assessment and plan: Patient has already been treated with antibiotics for UTI completing last dose of ceftin yesterday. Culture when arrived for swing bed stay however is now growing pseudomonas (intermittent sensitivity to cephalosporin). Patient asymptomatic currently however. ?contaminant vs ongoing infection. With recent antibiotic use and lack of symptoms recommend repeating culture and monitoring. If does become symptomatic would recommend fluoroquinolone based on sensitivities. Current Visit: No (4) Pneumonia Status: Resolved Assessment and plan: Has completed antibiotic therapy at this time. Patient denies any new symptoms of concern. Will continue to monitor. Current Visit: No (5) Chronic renal failure, stage 3 (moderate) Status: Chronic Current Visit: No (6) Hypertension, benign Status: Chronic Current Visit: Yes - Time Spent With Patient Total time spent with greater than 50% in coordination of care (as documented) at patient's floor/unit and/or counseling patient: 16-24 minutes Estimated anticipated discharge: D/C 08/19 with family IM: PN Subjective Interval history: No specific concerns, understands upcoming plan of care. Denies any urinary symptoms besides need for self catheterization. Admits to having some ongoing memory changes. General: confusion (mild cloudiness), pain (right face/scalp, better), visual disturbance (mild blurring, right eye, but improving), no fever, no chills HEENT: no headache Cardiovascular: no chest pain, no palpitations Respiratory: cough (minimal; chronic), sputum (; chronic.), no wheeze (resolved. ), no SOB Gastrointestinal: diarrhea (chronic diarrhea and constipation.), constipation, no abdominal pain, no nausea, no vomiting Genitourinary: other (urinary retention, baseline. He is doing intermittent self catheterization 3 x daily.) Integumentary: rashes (right V1 distribution) Neurological: no numbness, no tingling IM: PN Objective Exam - I&O/Vital Signs I&O: Intake & Output 08/14/16 08/15/16 08/15/16 21:59 05:59 13:59 Intake Total 1280 50 Output Total 1200 300 Balance 80 -250 Intake: Oral 1280 50 Output: Urine 1200 300 Straight 375 Other: Urine Appearance Clear Cloudy Urine Color Dark [place] Yellow Straight Light [place] Voiding Method Self-Catheterization Self-Catheterization # Voids 1 Vital Signs: Last Vital Signs Temp 37.1 C 08/15/16 06:22 Pulse 51 L 08/15/16 06:22 Resp 24 08/15/16 06:22 BP 134/67 08/15/16 06:22 Pulse Ox 90 08/15/16 06:22 Oxygen Flow Rate 2 Oxygen Delivery Method Room Air - Constitutional General appearance: Present: average body habitus, cooperative, disheveled. Absent: acute distress - Head Head exam: Present: atraumatic - Eye Eye exam: Present: conjunctival injection (right), EOMI (minimal pain now with extraocular movement), PERRL - ENT ENT exam: Present: mucous membranes dry - Neck Neck exam: Present: full ROM - Respiratory Respiratory exam: Present: decreased breath sounds. Absent: rales (No rales her today.), rhonchi, wheezes (no wheezes today.) - Cardiovascular Cardiovascular exam: Present: RRR, systolic murmur (1/6, left sternal border). Absent: S3, S4 - GI/Abdominal GI/Abdominal exam: Present: normal bowel sounds, soft. Absent: organomegaly, rebound, rigid, tenderness - Extremities Exam Extremities exam: Present: other (stasis changes with pigmentation; very dry.). Absent: calf tenderness, edema - Back Exam Back exam: Absent: CVA tenderness (L), CVA tenderness (R) - Neurological Exam Neurological exam: Present: alert, oriented X3 - Psychiatric Psychiatric exam: Present: anxious (at his baseline.). Absent: depressed - Skin Skin exam: Present: rash (crusted cluster resolving lesions involving right V1 distribution) - Allied Health Notes Allied health notes reviewed: case management, nursing, OT, PT, social work - Lab Labs: Laboratory Last Values WBC 8.4 X 10^3uL (3.9-10.7) 08/12/16 08:15 RBC 4.99 X 10^6uL (4.20-6.10) 08/12/16 08:15 Hgb 17.2 g/dL (14.0-18.0) 08/12/16 08:15 Hct 49.6 % (42.0-54.0) 08/12/16 08:15 MCV 99.5 fL (80.0-100.0) 08/12/16 08:15 MCH 34.5 pg (29.0-35.0) 08/12/16 08:15 MCHC 34.6 g/dL (32.0-36.0) 08/12/16 08:15 RDW 12.8 % (11.5-14.5) 08/12/16 08:15 Plt Count 187 X 10^3uL (130-440) 08/12/16 08:15 MPV 7.6 fL (7.4-10.4) 08/12/16 08:15 Neutrophils % 76.3 % (54.0-75.0) H 08/12/16 08:15 Lymphocytes % 11.7 % (20.0-40.0) L 08/12/16 08:15 Eosinophils % 4.7 % (0.0-6.0) 08/12/16 08:15 Basophils % 0.8 % (0.0-2.0) 08/12/16 08:15 Neutrophils # 6.4 X 10^3uL (2.6-6.7) 08/12/16 08:15 Lymphocytes # 1.0 X 10^3uL (0.8-3.8) 08/12/16 08:15 Monocytes 6.5 % (2.0-10.0) 08/12/16 08:15 Monocytes # 0.5 X 10^3uL (0.2-1.0) 08/12/16 08:15 Eosinophils # 0.4 X 10^3uL (0.0-0.4) 08/12/16 08:15 Basophils # 0.1 X 10^3uL (0.0-0.1) 08/12/16 08:15 Sodium 142 mmol/L (137-145) 08/12/16 08:15 Potassium 3.5 mmol/L (3.5-5.1) 08/12/16 08:15 Chloride 109 mmol/L (98-107) H 08/12/16 08:15 Carbon Dioxide 25 mmol/L (22-30) 08/12/16 08:15 BUN 21 mg/dL (9-20) H 08/12/16 08:15 Creatinine 1.3 mg/dL (0.7-1.3) 08/12/16 08:15 GFR Calculation Not Reportable 08/12/16 08:15 Glucose 133 mg/dL (70-100) H 08/12/16 08:15 Calcium 9.0 mg/dL (8.4-10.2) 08/12/16 08:15 Total Bilirubin 1.0 mg/dL (0.2-1.3) 08/12/16 08:15 Direct Bilirubin 0.2 mg/dL (0.0-0.4) 08/12/16 08:15 AST 21 U/L (17-59) 08/12/16 08:15 ALT 38 U/L (21-72) 08/12/16 08:15 Alkaline Phosphatase 61 U/L (38-126) 08/12/16 08:15 Total Protein 6.3 g/dL (6.3-8.2) 08/12/16 08:15 Albumin 3.4 g/dL (3.5-5.0) L 08/12/16 08:15 Urine Color Yellow 08/11/16 21:39 Urine Appearance Turbid A 08/11/16 21:39 Urine pH 6.5 (5-7) 08/11/16 21:39 Ur Specific [place] 1.025 (0.001-1.035) 08/11/16 21:39 Urine Protein 100mg/dl (2+) (NEG - TRACE) A 08/11/16 21:39 Urine Ketones Negative (NEGATIVE) 08/11/16 21:39 Urine Blood 250 alisia/ul (3+) (NEGATIVE) A 08/11/16 21:39 Urine Nitrate Positive (NEGATIVE) A 08/11/16 21:39 Urine Bilirubin Negative (NEGATIVE) 08/11/16 21:39 Urine Urobilinogen 0.2mg/dl (normal) (NEG-1mg/dL) 08/11/16 21:39 Ur Leukocyte Esterase 500 wbc/ul (3+) (NEGATIVE) A 08/11/16 21:39 Urine RBC 25-50/hpf (0-5/hpf) A 08/11/16 21:39 Urine WBC >100/hpf (0-4/hpf) A 08/11/16 21:39 Ur Squamous Epith Cells None seen (<= 15/hpf) 08/11/16 21:39 Amorphous Sediment Up to 25%/lpf (Up to 25%) 08/11/16 21:39 Urine Bacteria >50 organisms/hpf (<10/hpf) A 08/11/16 21:39 Urine Mucus None seen (Up to 25%) 08/11/16 21:39 Urine Sperm None seen 08/11/16 21:39 Urine Glucose Normal (NEGATIVE) 08/11/16 21:39 Quality Questions - VTE Prophylaxis Assessment VTE Present on Admission?: No Patient at risk for venous thromboembolism?: No VTE Risk Level: Moderate Risk Pharmaceutical VTE prophylaxis contraindication reason: N/A- VTE prophylaxsis ordered Mechanical VTE prophylaxis contraindication reason: N/A- VTE prophylaxsis ordered (3) UTI (urinary tract infection) Qualifiers: Urinary tract infection type: catheter-associated UTI Indwelling urinary catheter type: unspecified Encounter type: subsequent encounter Qualified Code (s): T83.511D - Infection and inflammatory reaction due to indwelling urethral catheter, subsequent encounter; N39.0 - Urinary tract infection, site not specified (4) Pneumonia Qualifiers: Pneumonia type: due to unspecified organism Laterality: left Lung location: lower lobe of lung Qualified Code(s): J18.1 - Lobar pneumonia, unspecified organism
[2016-08-15] MEDS: HYDROCORTISONE 1% CREAM 28 APP/28 GM TUBE TOPICAL PRN (19:21)
[2016-08-15] MEDS: MELATONIN 3 MG TABLET PO SCH (20:15)
[2016-08-16] MEDS: HYDROCORTISONE 1% CREAM 28 APP/28 GM TUBE TOPICAL PRN (06:37)
[2016-08-16] MEDS: ENOXAPARIN SODIUM 30 MG/0.3 ML SYR SUBCUT SCH (08:54)
[2016-08-16] MEDS: VITAMIN B COMPLEX 1 TABLET PO SCH (08:54)
[2016-08-16] MEDS: ERYTHROMYCIN BASE OPHTH 1 GM OINT RIGHTEYE SCH ×2 (08:54→21:17)
[2016-08-16] MEDS: CHOLECALCIFEROL 1,000 UNIT CAPSULE PO SCH (08:55)
[2016-08-16] MEDS: AMLODIPINE BESYLATE 5 MG TABLET PO SCH (08:55)
[2016-08-16] MEDS: ALLOPURINOL 100 MG TAB PO SCH ×2 (08:55→21:17)
[2016-08-16] MEDS: GUAIFENESIN ER 600 MG TABLET PO SCH ×2 (08:55→21:17)
[2016-08-16] MEDS: MELATONIN 3 MG TABLET PO SCH (21:17)
[2016-08-17] MEDS: VITAMIN B COMPLEX 1 TABLET PO SCH (09:27)
[2016-08-17] MEDS: ERYTHROMYCIN BASE OPHTH 1 GM OINT RIGHTEYE SCH ×2 (09:27→20:35)
[2016-08-17] MEDS: ENOXAPARIN SODIUM 30 MG/0.3 ML SYR SUBCUT SCH (09:27)
[2016-08-17] MEDS: GUAIFENESIN ER 600 MG TABLET PO SCH ×2 (09:27→20:35)
[2016-08-17] MEDS: AMLODIPINE BESYLATE 5 MG TABLET PO SCH (09:27)
[2016-08-17] MEDS: CHOLECALCIFEROL 1,000 UNIT CAPSULE PO SCH (09:27)
[2016-08-17] MEDS: ALLOPURINOL 100 MG TAB PO SCH ×2 (09:28→20:35)
[2016-08-17] MEDS: MELATONIN 3 MG TABLET PO SCH (20:35)
[2016-08-18] MEDS: ALLOPURINOL 100 MG TAB PO SCH ×2 (09:10→21:26)
[2016-08-18] MEDS: ENOXAPARIN SODIUM 30 MG/0.3 ML SYR SUBCUT SCH (09:10)
[2016-08-18] MEDS: AMLODIPINE BESYLATE 5 MG TABLET PO SCH (09:10)
[2016-08-18] MEDS: VITAMIN B COMPLEX 1 TABLET PO SCH (09:10)
[2016-08-18] MEDS: CHOLECALCIFEROL 1,000 UNIT CAPSULE PO SCH (09:10)
[2016-08-18] MEDS: GUAIFENESIN ER 600 MG TABLET PO SCH ×2 (09:11→21:26)
--- NOTE | 2016-08-18 09:18 | PROGRESS NOTE: IM SOAP ---
IM: PN Subjective General: pain (right face/scalp, greatly improved.), visual disturbance (mild blurring, right eye, but improving.), no confusion (He no longer has confusion. ), no fever, no chills HEENT: no headache Cardiovascular: no chest pain, no palpitations, no dizziness Respiratory: no cough (He is no longer having cough or sputum.), no sputum, no SOB Gastrointestinal: diarrhea (chronic diarrhea and constipation.), constipation, no abdominal pain, no nausea, no vomiting Genitourinary: other (urinary retention, baseline. He is doing intermittent self catheterization 3 x daily. Nursing staff states that his acne is now sterile and appropriate.) Integumentary: rashes (Zoster right V1 distribution) Neurological: no numbness, no tingling IM: PN Objective Exam - I&O/Vital Signs I&O: Intake & Output 08/17/16 08/18/16 08/18/16 21:59 05:59 13:59 Intake Total 830 100 Output Total 350 350 Balance 480 -250 Intake: Oral 830 100 Output: Urine 350 350 Straight 350 Other: Urine Appearance Cloudy Urine Color Yellow Straight Yellow Stool Size Small # Bowel Movements 3 Vital Signs: Last Vital Signs Temp 36.6 C 08/18/16 06:16 Pulse 52 L 08/18/16 06:16 Resp 20 08/18/16 06:16 BP 125/66 08/18/16 06:16 Pulse Ox 89 L 08/18/16 08:48 Oxygen Flow Rate 1 Oxygen Delivery Method Room Air - Constitutional General appearance: Present: average body habitus, cooperative, disheveled. Absent: acute distress - Head Head exam: Present: atraumatic - Eye Eye exam: Present: EOMI (No pain with extraocular movement now.), PERRL. Absent : conjunctival injection (Now resolved.) - ENT ENT exam: Present: mucous membranes moist - Neck Neck exam: Present: full ROM - Respiratory Respiratory exam: Present: clear. Absent: rales, rhonchi, wheezes (no wheezes today.) - Cardiovascular Cardiovascular exam: Present: RRR, systolic murmur (hospital). Absent: S3, S4 - GI/Abdominal GI/Abdominal exam: Present: normal bowel sounds, soft. Absent: organomegaly, rebound, rigid, tenderness - Extremities Exam Extremities exam: Present: other (stasis changes with pigmentation; very dry.). Absent: calf tenderness, edema - Back Exam Back exam: Absent: CVA tenderness (L), CVA tenderness (R) - Neurological Exam Neurological exam: Present: alert (He is much clearer today. He is able to give a very accurate history. e denies any further hallucinations or conf), oriented X3 - Psychiatric Psychiatric exam: Present: anxious (at his baseline.). Absent: depressed - Skin Skin exam: Present: rash (crusted cluster resolving lesions involving right V1 distribution) - Allied Health Notes Allied health notes reviewed: case management, nursing, OT, PT, social work - Lab Labs: Laboratory Last Values WBC 8.4 X 10^3uL (3.9-10.7) 08/12/16 08:15 RBC 4.99 X 10^6uL (4.20-6.10) 08/12/16 08:15 Hgb 17.2 g/dL (14.0-18.0) 08/12/16 08:15 Hct 49.6 % (42.0-54.0) 08/12/16 08:15 MCV 99.5 fL (80.0-100.0) 08/12/16 08:15 MCH 34.5 pg (29.0-35.0) 08/12/16 08:15 MCHC 34.6 g/dL (32.0-36.0) 08/12/16 08:15 RDW 12.8 % (11.5-14.5) 08/12/16 08:15 Plt Count 187 X 10^3uL (130-440) 08/12/16 08:15 MPV 7.6 fL (7.4-10.4) 08/12/16 08:15 Neutrophils % 76.3 % (54.0-75.0) H 08/12/16 08:15 Lymphocytes % 11.7 % (20.0-40.0) L 08/12/16 08:15 Eosinophils % 4.7 % (0.0-6.0) 08/12/16 08:15 Basophils % 0.8 % (0.0-2.0) 08/12/16 08:15 Neutrophils # 6.4 X 10^3uL (2.6-6.7) 08/12/16 08:15 Lymphocytes # 1.0 X 10^3uL (0.8-3.8) 08/12/16 08:15 Monocytes 6.5 % (2.0-10.0) 08/12/16 08:15 Monocytes # 0.5 X 10^3uL (0.2-1.0) 08/12/16 08:15 Eosinophils # 0.4 X 10^3uL (0.0-0.4) 08/12/16 08:15 Basophils # 0.1 X 10^3uL (0.0-0.1) 08/12/16 08:15 Sodium 142 mmol/L (137-145) 08/12/16 08:15 Potassium 3.5 mmol/L (3.5-5.1) 08/12/16 08:15 Chloride 109 mmol/L (98-107) H 08/12/16 08:15 Carbon Dioxide 25 mmol/L (22-30) 08/12/16 08:15 BUN 21 mg/dL (9-20) H 08/12/16 08:15 Creatinine 1.3 mg/dL (0.7-1.3) 08/12/16 08:15 GFR Calculation Not Reportable 08/12/16 08:15 Glucose 133 mg/dL (70-100) H 08/12/16 08:15 Calcium 9.0 mg/dL (8.4-10.2) 08/12/16 08:15 Total Bilirubin 1.0 mg/dL (0.2-1.3) 08/12/16 08:15 Direct Bilirubin 0.2 mg/dL (0.0-0.4) 08/12/16 08:15 AST 21 U/L (17-59) 08/12/16 08:15 ALT 38 U/L (21-72) 08/12/16 08:15 Alkaline Phosphatase 61 U/L (38-126) 08/12/16 08:15 Total Protein 6.3 g/dL (6.3-8.2) 08/12/16 08:15 Albumin 3.4 g/dL (3.5-5.0) L 08/12/16 08:15 Urine Color Yellow 08/11/16 21:39 Urine Appearance Turbid A 08/11/16 21:39 Urine pH 6.5 (5-7) 08/11/16 21:39 Ur Specific [place] 1.025 (0.001-1.035) 08/11/16 21:39 Urine Protein 100mg/dl (2+) (NEG - TRACE) A 08/11/16 21:39 Urine Ketones Negative (NEGATIVE) 08/11/16 21:39 Urine Blood 250 alisia/ul (3+) (NEGATIVE) A 08/11/16 21:39 Urine Nitrate Positive (NEGATIVE) A 08/11/16 21:39 Urine Bilirubin Negative (NEGATIVE) 08/11/16 21:39 Urine Urobilinogen 0.2mg/dl (normal) (NEG-1mg/dL) 08/11/16 21:39 Ur Leukocyte Esterase 500 wbc/ul (3+) (NEGATIVE) A 08/11/16 21:39 Urine RBC 25-50/hpf (0-5/hpf) A 08/11/16 21:39 Urine WBC >100/hpf (0-4/hpf) A 08/11/16 21:39 Ur Squamous Epith Cells None seen (<= 15/hpf) 08/11/16 21:39 Amorphous Sediment Up to 25%/lpf (Up to 25%) 08/11/16 21:39 Urine Bacteria >50 organisms/hpf (<10/hpf) A 08/11/16 21:39 Urine Mucus None seen (Up to 25%) 08/11/16 21:39 Urine Sperm None seen 08/11/16 21:39 Urine Glucose Normal (NEGATIVE) 08/11/16 21:39 Assessment and Plan - Date of Encounter Date of Encounter: 08/18/16 (1) Herpes zoster keratitis of right eye Status: Acute Assessment and plan: He was treated with 7 days of IV acyclovir as well a shorter course of IV steroids. His zoster slowly improving. Continue erythromycin eye ointment. He apparently missed a follow-up appointment with data scientist, Dr. Vegas later last week. We will reschedule this appointment. Current Visit: No (2) Herpes zoster ophthalmicus of right eye Status: Acute Assessment and plan: As above. 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 He is now nearly back to his baseline cognitive function. Occupational therapist at [facility] recommended that Bill have 24-hour, 7 day per week care while living independently at home. His nephew who is his medical power of waste collection driver arrived into town yesterday. I have spoken at length with him. He states that it is not possible to have 24-hour, 7 day per week care at home. They are working on hiring some caregivers. He has a care conference today. The plan is for him to be discharged home tomorrow. Current Visit: No (4) UTI (urinary tract infection) Status: Acute Assessment and plan: His urine culture from 08/05/2016 grew Klebsiella pneumoniae. He was adequately treated with Rocephin and Ceftin for this UTI. 2 repeat urine cultures done on 08/11/16 and showed Pseudomonas sensitive to ciprofloxacin, gentamicin,cefotaxime , and imipenem. We will treat with ciprofloxacin. He will need a repeat urine culture 2 weeks after treatment. Check CBC tomorrow. Current Visit: No (5) Hypertension, benign Status: Chronic Assessment and plan: Blood pressures elevated. Will add LARS inhibitor to amlodipine. Recheck CMP tomorrow. Current Visit: Yes (6) Chronic renal failure, stage 3 (moderate) Status: Chronic Assessment and plan: His creatinine is currently 1.3 and greatly improved from prior baseline of 1.7- 1.9. He is probably chronically dehydrated at home. Current Visit: No (7) DVT prophylaxis Status: Acute Assessment and plan: Will now discontinue Lovenox as he is ambulating 3 times a day. Continue baby aspirin daily. Current Visit: Yes (8) Hypoxemia Status: Acute Assessment and plan: He is now requiring oxygen 2 L only at night. He will need a nocturnal pulse ox study as an outpatient. He is stable on room air during the day. Current Visit: No (9) Urinary retention Status: Chronic Assessment and plan: I have spoken with nursing staff at length. They have observed Jp's self catheterization technique. Jp is now completely self-sufficient to resume self-catheterization 3 times daily at home. He has a follow-up appointment with donato Sullivan on 09/08/16 at 10 AM. As above, we will treat his pseudomonal UTI with ciprofloxacin. Current Visit: Yes - Time Spent With Patient Total time spent with greater than 50% in coordination of care (as documented) at patient's floor/unit and/or counseling patient: 25 - 35 minutes (With both Jp and his nephew.) Estimated anticipated discharge: D/C 08/19 with family Quality Questions - VTE Prophylaxis Assessment VTE Present on Admission?: No Patient at risk for venous thromboembolism?: Yes VTE Risk Level: High Risk Pharmaceutical VTE prophylaxis contraindication reason: N/A- VTE prophylaxsis ordered Mechanical VTE prophylaxis contraindication reason: N/A- VTE prophylaxsis ordered (4) UTI (urinary tract infection) Qualifiers: Urinary tract infection type: catheter-associated UTI Indwelling urinary catheter type: unspecified Encounter type: subsequent encounter Qualified Code (s): T83.511D - Infection and inflammatory reaction due to indwelling urethral catheter, subsequent encounter; N39.0 - Urinary tract infection, site not specified
[2016-08-18] MEDS: ERYTHROMYCIN BASE OPHTH 1 GM OINT RIGHTEYE SCH ×2 (09:21→21:29)
[2016-08-18 11:50] VITALS: O2SAT 91
[2016-08-18 18:32] VITALS: TEMP 98.7
[2016-08-18] MEDS: CIPROFLOXACIN HCL 500 MG TABLET PO SCH (19:53)
[2016-08-18] MEDS: LISINOPRIL 10 MG TABLET PO SCH (19:53)
[2016-08-18] MEDS ORDERED: LISINOPRIL 10 MG TABLET PO ONE (20:07)
[2016-08-18] MEDS: MELATONIN 3 MG TABLET PO SCH (21:26)
[2016-08-19 06:08] LABS: HEMATOCRIT 45.3 % (42.0-54.0); HEMOGLOBIN 15.9 g/dL (14.0-18.0); MEAN CELL VOLUME 98.8 fL (80.0-100.0); MEAN CORPUSCULAR HEMOGLOBIN 34.6 pg (29.0-35.0); PLATELET COUNT 227 X 10^3uL (130-440); RED BLOOD COUNT 4.59 X 10^6uL (4.20-6.10); RED CELL DISTRIBUTION WIDTH 13.1 % (11.5-14.5); WHITE BLOOD COUNT 7.8 X 10^3uL (3.9-10.7)
[2016-08-19 06:15] LABS: A/G RATIO 1.2; ALBUMIN 3.4 g/dL (3.5-5.0); ALKALINE PHOSPHATASE 57 U/L (38-126); ALT 34 U/L (21-72); AST 20 U/L (17-59); BILIRUBIN, TOTAL 0.7 mg/dL (0.2-1.3); BLOOD UREA NITROGEN 27 mg/dL (9-20); CHLORIDE 111 mmol/L (98-107); GLUCOSE 87 mg/dL (70-100); POTASSIUM 3.9 mmol/L (3.5-5.1); SODIUM 143 mmol/L (137-145); TOTAL PROTEIN 6.2 g/dL (6.3-8.2)
[2016-08-19 06:38] LABS: EOSINOPHIL % (Manual) 3 % (0.0-6.0); LYMPHOCYTE % (Manual) 17 % (20.0-40.0); MONOCYTE % (Manual) 6 % (2.0-10.0); NEUTROPHIL % (Manual) 74 % (54.0-75.0); PLATELET ESTIMATE ADEQUATE
[2016-08-19] MEDS: CIPROFLOXACIN HCL 500 MG TABLET PO SCH (06:38)
[2016-08-19 07:52] VITALS: BP 135/60; PULSE 53
[2016-08-19] MEDS: LISINOPRIL 10 MG TABLET PO SCH (08:23)
[2016-08-19] MEDS: VITAMIN B COMPLEX 1 TABLET PO SCH (08:23)
[2016-08-19] MEDS: ERYTHROMYCIN BASE OPHTH 1 GM OINT RIGHTEYE SCH (08:23)
[2016-08-19] MEDS: CHOLECALCIFEROL 1,000 UNIT CAPSULE PO SCH (08:23)
[2016-08-19] MEDS: ALLOPURINOL 100 MG TAB PO SCH (08:24)
[2016-08-19] MEDS: AMLODIPINE BESYLATE 5 MG TABLET PO SCH (08:24)
[2016-08-19] MEDS: GUAIFENESIN ER 600 MG TABLET PO SCH (08:24)
--- NOTE | 2016-08-19 08:40 | DC SUMMARY: IM Note ---
Discharge Summary: IM/Peds Provider: Date of Admission: 08/11/16 Admitting Provider: EJ PAGE MD Attending Provider: EJ PAGE MD Discharging Provider: EJ PAGE MD Primary Care Provider: Discharge Date: 08/19/16 Consults: 08/11/16 13:09 Nutrition/Dietary Consult [CONS] Routine Reason: Swingbed Admission Protocol 08/11/16 13:20 Pharmacy Consult [CONS] Routine Reason: Medication reconciliation from [facility] transfer. THANKS! - Diagnosis (1) Herpes zoster keratitis of right eye Status: Acute (2) Herpes zoster ophthalmicus of right eye Status: Acute (3) Confusion associated with infection Status: Acute (4) UTI (urinary tract infection) Status: Acute Qualifiers: Urinary tract infection type: catheter-associated UTI Indwelling urinary catheter type: unspecified Encounter type: subsequent encounter Qualified Code(s): T83.511D - Infection and inflammatory reaction due to indwelling urethral catheter, subsequent encounter; N39.0 - Urinary tract infection, site not specified (5) Hypertension, benign Status: Chronic (6) Chronic renal failure, stage 3 (moderate) Status: Chronic (7) Hypoxemia Status: Acute (8) Urinary retention Status: Chronic - Time Spent with Patient Total time spent providing and/or coordinating discharge services: Time with patient DS: Greater than 30 minutes Discharge - Patient/Caregiver Discharge Instructions Activity Level: Ambulate at least TID with walker. Diet: Regular. Follow up: EJ PAGE MD [Primary Care Provider] - 08/26/16 11:30 am PAYAL SULLIVAN MD [MD] - 09/08/16 10:00 am (PT HAS AN APPT WITH DR SULLIVAN IN THE [facility] 09-08-16 @ 10AM ) Overall discharge status: patient is progressing back to baseline Print Language: UKRAINIAN Home Medications: Ciprofloxacin HCl [Cipro*] 500 mg PO Q12H #18 tab Erythromycin Base Ophth [Ilotycin Ophth*] 1 applic RIGHTEYE BID #1 tube Lisinopril [Prinivil*] 10 mg PO DAILY #30 tab Disposition: HOME, SELF-CARE Discharge Summary Data - Medication History Medication History: Home Medications Allopurinol [Zyloprim*] 100 mg PO BID 08/04/16 Amlodipine Besylate [Norvasc*] 10 mg PO DAILY 08/04/16 Acetaminophen [Tylenol*] 650 mg PO Q6H PRN 08/06/16 Azithromycin [Zithromax*] 250 mg PO DAILY 08/11/16 Cholecalciferol [Vitamin D*] 1,000 unit PO DAILY 08/11/16 Erythromycin Base Ophth [Ilotycin Ophth*] 1 applic RIGHTEYE BID 08/11/16 Guaifenesin ER [Mucinex*] 600 mg PO BID 08/11/16 Hydrocodone/Acetaminophen [[place] 5-325 Tablet] 1 - 2 tab PO Q4H PRN 08/11/16 Melatonin [Melatonin*] 3 mg PO HS 08/11/16 Ondansetron HCl [Zofran] 4 mg IV Q4H 08/11/16 Polyethylene Glycol 3350 [Miralax*] 1 packet PO DAILY PRN 08/11/16 Simethicone Chew [Mylicon*] 80 mg PO PRN PRN 08/11/16 Vitamin B Complex [Stress B Complex] 1 tab PO DAILY 08/11/16 aspirin EC [Aspirin EC*] 81 mg PO DAILY 08/11/16 cefUROXime AXETIL [Ceftin] 500 mg PO BID 08/11/16 Inpatient Medications 08/11/16 13:09 Bisacodyl [Dulcolax] 10 mg IN BID PRN Glycerin Adult [Glycerin Adult Supp] 2 gm RECTAL DAILY PRN Mag-Al Plus Xs Susp [Maalox Liquid] 5 ml PO Q2H PRN Magnesium Hydroxide [Milk of Magnesia] 30 ml PO DAILY PRN Na Phos,M-B/Na Phos,Di-Ba [Fleet Enema] 133 ml IN ONCE PRN 08/11/16 22:47 Acetaminophen [Tylenol] 650 mg PO Q6H PRN Polyethylene Glycol 3350 [miraLAX] 17 gm PO DAILY PRN Simethicone Chew [Mylicon] 80 mg PO PRN PRN hydroCODone/APAP 5/325 MG [[place]] 1 tab PO Q4H PRN 08/11/16 22:49 Ondansetron Odt [Zofran Odt] 4 mg PO Q6H PRN 08/12/16 09:00 Allopurinol [Zyloprim] 100 mg PO BID Amlodipine Besylate [Norvasc] 10 mg PO DAILY Cholecalciferol [Vitamin D3] 1,000 unit PO DAILY Erythromycin Base Ophth [Ilotycin Ophth] 1 applic RIGHTEYE BID Guaifenesin ER [Mucinex] 600 mg PO BID Vitamin B Complex [Stress B Complex] 1 tab PO DAILY aspirin EC [Ecotrin 81 mg] 81 mg PO DAILY 08/12/16 12:50 Albuterol 0.083% [Ventolin 0.083% Neb Soln] 2.5 mg INHALATION QID PRN 08/12/16 14:00 Hydrocortisone 1% Cream [Cortisone 1% Cream] 1 amalia TOPICAL Q8H PRN 08/12/16 21:00 Melatonin 3 mg PO HS 08/18/16 19:00 Ciprofloxacin HCl [Cipro] 500 mg PO Q12H Lisinopril [Prinivil] 10 mg PO DAILY Procedures and tests throughout hospitalization: Completed Lab Orders 08/11/16 21:39 UA W/ MICRO -CULTURE IF IND [URINE] Routine 08/12/16 08:15 BASIC METABOLIC PANEL [CHEM] AMDRAW CBC AUTO DIF, MDIF/RMOR IF IND [HEM] AMDRAW HEPATIC PANEL [CHEM] AMDRAW 08/19/16 05:35 CBC W/ MANUAL DIFFERENTIAL [HEM] Routine cmp [COMPREHENSIVE METABOLIC PANEL] [CHEM] AMDRAW Completed Microbiology Orders 08/11/16 19:45 URINE CULTURE [RM] Routine 08/15/16 15:20 URINE CULTURE [RM] Routine Pending Orders 08/11/16 13:09 Admit: Swing Bed Routine Activity: Ambulate with Assist TID Activity: BRP w/ Assist Only . Cleanse minor skin tears w/NS DAILY Cleanse minor skin tears w/NS PRN Obtain weight Daily Oxygen by Nasal Cannula 2 L/MIN Resuscitation Status Routine Titrate Oxygen TITRATE B/W 90-95% Vital Signs QSHIFT VS Wedge cushion for positioning PRN Makeup Instructor Consult [CM] Routine Bisacodyl [Dulcolax] 10 mg IN BID PRN Glycerin Adult [Glycerin Adult Supp] 2 gm RECTAL DAILY PRN Mag-Al Plus Xs Susp [Maalox Liquid] 5 ml PO Q2H PRN Magnesium Hydroxide [Milk of Magnesia] 30 ml PO DAILY PRN Na Phos,M-B/Na Phos,Di-Ba [Fleet Enema] 133 ml IN ONCE PRN 08/11/16 13:13 Cover minor skin tears with DAILYPRN 08/11/16 13:17 Occupation Therapy Eval and Treat [OT] Routine 08/11/16 13:20 Pharmacy Consult [CONS] Routine 08/11/16 22:47 Acetaminophen [Tylenol] 650 mg PO Q6H PRN Polyethylene Glycol 3350 [miraLAX] 17 gm PO DAILY PRN Simethicone Chew [Mylicon] 80 mg PO PRN PRN hydroCODone/APAP 5/325 MG [[place]] 1 tab PO Q4H PRN 08/11/16 22:49 Ondansetron Odt [Zofran Odt] 4 mg PO Q6H PRN 08/11/16 Dinner Regular [DIET] 08/12/16 09:00 Allopurinol [Zyloprim] 100 mg PO BID Amlodipine Besylate [Norvasc] 10 mg PO DAILY Cholecalciferol [Vitamin D3] 1,000 unit PO DAILY Erythromycin Base Ophth [Ilotycin Ophth] 1 applic RIGHTEYE BID Guaifenesin ER [Mucinex] 600 mg PO BID Vitamin B Complex [Stress B Complex] 1 tab PO DAILY aspirin EC [Ecotrin 81 mg] 81 mg PO DAILY 08/12/16 12:50 Albuterol 0.083% [Ventolin 0.083% Neb Soln] 2.5 mg INHALATION QID PRN 08/12/16 14:00 Hydrocortisone 1% Cream [Cortisone 1% Cream] 1 amalia TOPICAL Q8H PRN 08/12/16 21:00 Melatonin 3 mg PO HS 08/12/16 21:14 Incentive Spirometry Q1H Teach: Incentive Spirometry . Respiratory Therapy Consult [RT] Routine 08/13/16 17:41 Physical Therapy Plan of Care [PT] Routine 08/13/16 19:16 Miscellaneous Care Order . 08/18/16 19:00 Ciprofloxacin HCl [Cipro] 500 mg PO Q12H Lisinopril [Prinivil] 10 mg PO DAILY Labs on day of discharge: Labs from last 24 hours 08/19/16 05:35 WBC 7.8 RBC 4.59 Hgb 15.9 Hct 45.3 MCV 98.8 MCH 34.6 MCHC 35.0 RDW 13.1 Plt Count 227 MPV 8.0 Total Counted 100 Neutrophils % (Manual) 74 Lymphocytes % (Manual) 17 L Monocytes % (Manual) 6 Eosinophils % (Manual) 3 Platelet Estimate Adequate Sodium 143 Potassium 3.9 Chloride 111 H Carbon Dioxide 23 BUN 27 H Creatinine 1.4 H GFR Calculation Not Reportable Glucose 87 Calcium 9.0 Total Bilirubin 0.7 AST 20 ALT 34 Alkaline Phosphatase 57 Total Protein 6.2 L Albumin 3.4 L Albumin/Globulin Ratio 1.2 - Impressions Please see prior H&Ps and discharge summaries for further details. Jp was read[place] [facility] [place] after being transferred to [facility] for encephalopathy related to zoster R eye as well as UTI and pneumonia and worsening clinical status. He has made good progress with therapy and is walking with a walker. His zoster is resolving. He will need a follow-up slit lap eys exam with Dr. [place]. His pneumonia has ow resolved. He has a new Pseudomonal UTI after completing antibiotics for both Enterococcal UTI and pneumonia. Ciprofloxacin started yesterday. His BPs have been elevated here. Lisinopril 10mg daily added yesterday. He will F/U with urology, Dr. Sullivan for his urinary retention. Nursing staff state that he is competent to continue home self-catheterizations TID. He will be discharged home with his nephew today. HHC, home PT, and home OT. IM: Discharge Physical Exam - I&O/Vital Signs I&O: Intake & Output 08/18/16 08/19/16 08/19/16 21:59 05:59 13:59 Intake Total 660 100 Output Total 250 250 700 Balance 410 -150 -700 Intake: Oral 660 100 Output: Urine 250 250 700 Straight 250 700 Other: Urine Appearance Cloudy Urine Color Straw Straight Straw Straw Voiding Method Self-Catheterization # Bowel Movements 2 Vital Signs: Last Vital Signs Temp 37.1 C 08/19/16 07:00 Pulse 53 L 08/19/16 07:00 Resp 24 08/19/16 07:00 BP 135/60 08/19/16 07:00 Pulse Ox 91 08/19/16 07:00 Oxygen Flow Rate 1 Oxygen Delivery Method Room Air - Constitutional General appearance: Present: average body habitus, cooperative, disheveled. Absent: acute distress - Head Head exam: Present: atraumatic, normocephalic - Eye Eye exam: Present: EOMI (No pain with extraocular movement now.), PERRL. Absent : conjunctival injection (Now resolved.) - ENT ENT exam: Present: mucous membranes moist - Neck Neck exam: Present: full ROM - Respiratory Respiratory exam: Present: clear. Absent: rales, respiratory distress, rhonchi , wheezes (no wheezes today.) - Cardiovascular Cardiovascular exam: Present: RRR. Absent: S3, S4, systolic murmur - GI/Abdominal GI/Abdominal exam: Present: normal bowel sounds, soft. Absent: organomegaly, rebound, rigid, tenderness - Extremities Exam Extremities exam: Present: other (stasis changes with pigmentation; very dry.). Absent: calf tenderness, edema - Back Exam Back exam: Absent: CVA tenderness (L), CVA tenderness (R) - Neurological Exam Neurological exam: Present: alert (He is clear today. He is able to give a very accurate history. ), oriented X3 - Psychiatric Psychiatric exam: Present: anxious (At his baseline.). Absent: depressed - Skin Skin exam: Present: rash (crusted cluster resolving lesions involving right V1 distribution; nearly resolved.) - Allied Health Notes Allied health notes reviewed: case management, nursing, OT, PT, social work
[2016-08-19] MEDS: HYDROCORTISONE 1% CREAM 28 APP/28 GM TUBE TOPICAL PRN (09:50)
[2016-08-19 16:42] VITALS: RESP 20
== END 2016-08-19 08:55 | disposition home or self-care (01) | DRG 124 ==
LOC: IN 15:25
PROVIDERS: ADMIT Family Medicine; ATTEND Family Medicine
DX: B02.39 Other herpes zoster eye disease (principal); B02.33 Zoster keratitis; N39.0 Urinary tract infection, site not specified; T83.511D Infection and inflammatory reaction due to indwelling urethral catheter, subsequent encounter; R41.0 Disorientation, unspecified; I87.8 Other specified disorders of veins; M85.89 Other specified disorders of bone density and structure, multiple sites; R27.0 Ataxia, unspecified; G93.40 Encephalopathy, unspecified; R15.9 Full incontinence of feces; I12.9 Hypertensive chronic kidney disease with stage 1 through stage 4 chronic kidney disease, or unspecified chronic kidney disease; N18.3 Chronic kidney disease, stage 3 (moderate); R33.0 Drug induced retention of urine; I87.2 Venous insufficiency (chronic) (peripheral); R41.82 Altered mental status, unspecified; L85.3 Xerosis cutis; Z79.82 Long term (current) use of aspirin; Z79.899 Other long term (current) drug therapy
CPT/HCPCS: 36415; 51701; 80048; 80053; 80076; 81001; 85007; 85025; 85027; 87077; 87086; 87186; 94667; 94760; J1650; Q0144